=== PATIENT | female | born 1955 | race Caucasian/White ===

== ENCOUNTER 2018-08-15 08:34 | Day surgery (SDC) | payer OTHER ==
[2018-08-15 09:38] VITALS: TEMP 98.1
[2018-08-15 10:30] VITALS: RESP 16
--- NOTE | 2018-08-15 11:04 | US ---
EXAMINATION TYPE: US biopsy lymph node DATE OF EXAM: 08/15/2018 HISTORY: Right axillary adenopathy, mass. FINDINGS: Maximal barrier technique was utilized. The skin overlying a suitable path to the patient' s mass in the right axilla was localized with ultrasound and the overlying skin prepped and draped. Ultrasound was utilized with sterile technique. Lidocaine was used for local anesthesia. A skin omer k was made with a scalpel. An 18-gauge needle was advanced under direct ultrasound guidance and core specimen obtained of the mass, 2 additional cores for total of 3 passes. Specimen submitted in form [place] to Pathology. Following the procedure, hemostasis achieved and the patient is discharged in sta ble condition without complication. IMPRESSION:STATUS POST ULTRASOUND GUIDED CORE BIOPSY OF right axillary adenopathy, MASS, PATHOLOGY IS PENDING. THIS PROCEDURE IS PERFORMED BY THE UNDERSIGNED.
[2018-08-15 11:05] VITALS: BP 112/62; PULSE 98
== END 2018-08-15 10:55 | disposition home or self-care (01) ==
LOC: RADPROMAIN 08:34
PROVIDERS: ATTEND Surgery Plastic and Reconstructive Surgery
DX: L92.8 Other granulomatous disorders of the skin and subcutaneous tissue (principal); R59.0 Localized enlarged lymph nodes; Z85.3 Personal history of malignant neoplasm of breast
CPT/HCPCS: 38505; 76942; 88305

== ENCOUNTER 2018-09-22 07:51 | Day surgery (SDC) | payer OTHER ==
[2018-09-21 08:44] VITALS: BMI 46.0
[~2018-09-22 07:51] MED LIST: ALPRAZolam 0.25 MG TAB PO PRN; ASPIRIN 325 MG TAB PO ONE; NITROGLYCERIN SL TABS 0.4 MG TAB SUBLINGUAL PRN; SODIUM CHLORIDE 0.9% 1,000 ML in EMPTY BAG 1 BAG IV ONE
[2018-09-22 08:11] VITALS: TEMP 97.6
[2018-09-22 08:36] LABS: Basophils # (A) 0.1 k/uL (0-0.2); Basophils % (A) 1 %; Eosinophils # (A) 0.1 k/uL (0-0.7); Eosinophils % (A) 2 %; HCT 42.3 % (34.0-46.0); HGB 13.7 gm/dL (11.4-16.0); Lymphocytes # (A) 1.7 k/uL (1.0-4.8); Lymphocytes % (A) 36 %; MCH 31.4 pg (25.0-35.0); MCHC 32.4 g/dL (31.0-37.0); MCV 96.8 fL (80.0-100.0); Mean Platelet Volume 8.6; Monocytes # (A) 0.4 k/uL (0-1.0); Monocytes % (A) 8 %; Neutrophils # (A) 2.3 k/uL (1.3-7.7); Neutrophils % (A) 50 %; Platelet Count 167 k/uL (150-450); RBC 4.37 m/uL (3.80-5.40); RDW 13.5 % (11.5-15.5); WBC 4.7 k/uL (3.8-10.6)
[2018-09-22 08:42] LABS: Calcium 9.2 mg/dL (8.4-10.2); Potassium 4.7 mmol/L (3.5-5.1)
[2018-09-22] MEDS ORDERED: MIDAZOLAM (PF) 2 MG/2 ML VIAL IVP ONE (10:51)
[2018-09-22] MEDS ORDERED: fentaNYL (PF) 50 MCG/ML 2 ML AMP IVP ONE (10:57)
[2018-09-22] MEDS ORDERED: LIDOCAINE 1% INJ 10MG/ML (20 ML MDV) SQ ONE (10:57)
[2018-09-22] MEDS ORDERED: VERAPAMIL SYRINGE (5 MG/10 ML) INTRAARTER ONE (10:59)
[2018-09-22] MEDS ORDERED: HEPARIN SODIUM 1,000 UN/ML (10ML VL) IV ONE (11:00)
[2018-09-22] MEDS ORDERED: IOPAMIDOL-370 100ML BTL INJ ONE (11:06)
[2018-09-22] MEDS ORDERED: SODIUM CHLORIDE 0.9% 1,000 ML IV SCH (11:15)
--- NOTE | 2018-09-22 11:17 | P.PCN ---
Date of Procedure: 09/22/18 Operative Findings: CARDIAC CATHETERIZATION PERFORMING PHYSICIAN: Shaheed Lopez MD, RPVI PREPROCEDURE DIAGNOSES: #1 exertional shortness of breath concerning for angina equivalent #2 multiple risk factors for CAD POSTPROCEDURE DIAGNOSES: #1 normal coronary angiogram #2 normal left ventricular end-diastolic pressure PROCEDURE PERFORMED: 1. Selective right and left coronary angiogram 2. Left heart catheterization 3. Left ventriculography APPROACH: Right radial artery PROCEDURE DESCRIPTION: After obtaining an informed consent and explaining the procedure benefits, risks, and complications, the patient was brought to cardiac laboratory animal facility supervisor. Local anesthesia was performed using lidocaine subcutaneously. The right radial artery was cannulated using Seldinger technique, the guidewire passed easily, following that we advanced a 6-Pakistani sheath dilator assembly, the wire and dilator were removed and sheath was flushed. Following that, 2 mg of verapamil along with 3000 unit heparin were given. Selective right and left coronary angiogram using a 6-Pakistani JR4 and JL 3.5 catheters. Following that we did left heart catheterization followed by left ventriculography using 6-Pakistani pigtail catheter. The procedure was completed there was no complication. SELECTIVE CORONARY ANGIOGRAM: The right coronary artery: Is a large caliber vessel and a dominant vessel and appears to be angiographically normal. Left main: Is angiographically normal but short left main. The left circumflex: Is a large caliber vessel and nondominant vessel and appears to be angiographically normal The left anterior descending artery: Is a large caliber vessel. Its angiographically normal. The proximal portion gives rises into a large diagonal branch which seems to be angiographically normal. HEMODYNAMICS: The LVEDP was 10 mmHg without significant gradient across aortic valve VENTRICULOGRAPHY: Was not performed POSTPROCEDURE MANAGEMENT: Medical treatment
[2018-09-22 11:26] VITALS: RESP 18
[2018-09-22 14:18] VITALS: BP 104/59; PULSE 75
== END 2018-09-22 15:00 | disposition home or self-care (01) ==
LOC: CATHCVL 07:51
PROVIDERS: ATTEND Internal Medicine Interventional Cardiology
DX: R07.89 Other chest pain (principal); R06.02 Shortness of breath; R42 Dizziness and giddiness; I10 Essential (primary) hypertension; E78.00 Pure hypercholesterolemia, unspecified; F17.210 Nicotine dependence, cigarettes, uncomplicated; I73.9 Peripheral vascular disease, unspecified; Z88.5 Allergy status to narcotic agent
CPT/HCPCS: 93458; 80048; 85025; C1769; C1894; J2001; J3010; J1644; Q9967; J2250

== ENCOUNTER → 2018-09-26 | Outpatient (CLI) | payer OTHER ==
--- NOTE | 2018-09-26 13:30 | CT ---
EXAMINATION TYPE: CT abdomen pelvis w con DATE OF EXAM: 09/26/2018 COMPARISON: None HISTORY: Hematuria CT DLP: 2238.2 mGycm Automated exposure control for dose reduction was used. CONTRAST: CT scan of the abdomen pelvis is performed with IV Contrast, patient injected with 100 mL of Isovue 3 00. FINDINGS- LUNG BASES-subsegmental changes at the lung bases most typical of atelectasis. 3 mm subpleural nodule right lower lobe LIVER/GB-postcholecystectomy changes.. PANCREAS- No gross abnormality is seen. SPLEEN- No gross abnormality is seen. ADRENALS- No gross abnormality is seen. KIDNEYS/BLADDER- no hydronephrosis, nephrolithiasis or renal mass. Bladder is homogeneous in attenuat ion. BOWEL-bowel gas pattern nonspecific. Changes of diverticulosis. No CT evidence of diverticulitis. Ret ained fecal debris noted. LYMPH NODES- No greater than 1cm abdominal or pelvic lymph nodes are appreciated. OSSEOUS STRUCTURES-hypertrophic and degenerative changes spine. OTHER- aorta of normal caliber with atherosclerotic changes. No free fluid. IMPRESSION- 1. No evidence of renal mass or hydronephrosis. 2. There is a 3 mm subpleural nodule right lower lobe. Follow-up CT chest in 6 months recommended to confirm stability.
== END | disposition home or self-care (01) ==
LOC: RADCTMAIN 11:32
PROVIDERS: ATTEND Urology
DX: R31.9 Hematuria, unspecified (principal); Z88.5 Allergy status to narcotic agent
CPT/HCPCS: 82565; 84520; 74177; 36415; Q9967 ×2

== ENCOUNTER → 2018-12-06 | Outpatient (CLI) | payer OTHER ==
--- NOTE | 2018-12-06 13:14 | MR ---
EXAMINATION TYPE: MR cervical spine wo con DATE OF EXAM: 12/06/2018 COMPARISON: None HISTORY: Radiculopathy, cervical region TECHNIQUE: Multiplanar, multisequence images of the cervical spine were acquired. FINDINGS: There is straightening of usual cervical lordosis and multilevel degenerative disc disease. There is grade 1 anterolisthesis of C4 on C5, likely on a degenerative basis. Vertebral body heights are maintained. There is patient motion limiting evaluation of the spinal cord although no focal les ion is seen. Numerous prominent probable arachnoid granulations are noted of the occipital bone. C2-C3: There is a small posterior disc osteophyte complex, uncovertebral hypertrophy, and facet arthr opathy creating mild bilateral neural foraminal narrowing, right greater than left. No spinal canal s tenosis. C3-C4: There is uncovertebral hypertrophy and facet arthropathy creating moderate bilateral neural fo raminal narrowing. Broad-based disc bulge is seen without spinal canal stenosis. C4-C5: There is a focal central disc herniation, uncovertebral hypertrophy, and facet arthropathy cre ating mild right and moderate left neural foraminal narrowing and minimally narrowing the ventral sub arachnoid space. C5-C6: There is a broad-based disc bulge, uncovertebral hypertrophy, and facet arthropathy creating m oderate to severe bilateral neural foraminal narrowing and minimally narrowing the ventral subarachno id space. C6-C7: There is a broad-based disc bulge, uncovertebral hypertrophy, and facet arthropathy creating m ild bilateral neural foraminal narrowing (left greater than right). This also contributes to mild letha rowing of the ventral subarachnoid space. C7-T1: Disc desiccation is seen without spinal canal stenosis or neural foraminal narrowing. IMPRESSION: 1. Central disc herniation at C4-C5 in combination with degenerative disc disease crating mild right and moderate left neural foraminal narrowing and minimally narrowing the ventral spinal canal. 2. Moderate multilevel degenerative disc disease creating variable degrees of neural foraminal narrow ing as detailed above most severe at C5-C6. No additional focal disc herniation. 3. Multilevel minimal narrowing of the ventral spinal canal at C4-C5, C5-C6, and C6-C7 with straighte sivan of usual cervical lordosis contributing to this finding in the basis of muscular sprain/chiasm o r patient positioning. 4. Partially visualized probable multiple prominent arachnoid granulations of the occipital bone alth ough these are only seen on sagittal sequence and MRI brain could further evaluate this finding.
== END | disposition home or self-care (01) ==
LOC: RADMRIMAIN 10:35
PROVIDERS: ATTEND Family Medicine
DX: M48.02 Spinal stenosis, cervical region (principal); M50.121 Cervical disc disorder at C4-C5 level with radiculopathy
CPT/HCPCS: 72141

== ENCOUNTER 2019-07-05 13:16 | Emergency (ER) | payer OTHER ==
[2019-07-05 13:28] VITALS: TEMP 97.8
[2019-07-05] MEDS ORDERED: ONDANSETRON 4 MG/2 ML VIAL IVP STA (14:41)
[2019-07-05] MEDS ORDERED: SODIUM CHLORIDE 0.9% 1,000 ML IV STA (14:41)
--- NOTE | 2019-07-05 14:47 | ED ---
General Adult HPI - General Chief complaint: Dizziness Stated complaint: Dizzy, flank pain Time Seen by Provider: 07/05/19 14:25 Source: patient Mode of arrival: wheelchair Limitations: no limitations - History of Present Illness Initial comments: Dictation was produced using [employer] dictation software. please excuse any grammatical, word or spelling errors. Chief Complaint: 63-year-old female past medical history of COPD presents with 1 day of dizziness and chest tenderness History of Present Illness: Patient is 63-year-old female she presents today from [facility] for evaluation. Patient was initially [facility] for one day of dizziness. She denies any nausea vomiting. Patient states she also has some pressure to the top of her head. She denies the sensation of room spinning. She just feels a little lightheaded. No diarrhea. No abdominal pain. Patient also has some chest tenderness to the left anterior chest. She states it hurts right under her breasts when she presses it. Denies any substernal chest pressure. Pleuritic chest symptoms. There has been viral URI that has been going around the house and affecting her family members. The ROS documented in this emergency department record has been reviewed and confirmed by me. Those systems with pertinent positive or negative responses have been documented in the HPI. All other systems are other negative and/or noncontributory. PHYSICAL EXAM: General Impression: Alert and oriented x3, not in acute distress HEENT: Normocephalic atraumatic, extra-ocular movements intact, pupils equal and reactive to light bilaterally, mucous membranes moist. Cardiovascular: Heart regular rate and rhythm, S1&S2 audible, no murmurs, rubs or gallops Chest: Lungs clear to auscultation bilaterally, no rhonchi, no wheeze, no rales Abdomen: Bowel sounds present, abdomen soft, non-tender, non-distended, no organomegaly Musculoskeletal: Pulses present and equal in all extremities, no peripheral edema Motor: no focal deficits noted Neurological: CN II-XII grossly intact, no focal motor or sensory deficits noted Skin: Intact with no visualized rashes Psych: Normal affect and mood ED course: 63-year-old female presents with dizziness. Signs upon arrival are within acceptable limits. EKGs benign. Patient is well-appearing. Chest pain is atypical and reproducible with palpation. Laboratory evaluation obtained. CBC, metabolic panel is unremarkable. Uri nalysis shows 14 white blood cells. Patient offered antibiotics for possible urinary tract infection. Patient told that this is reasonable given that she does not have any significant urinary symptoms. She is told however to follow up with her culture results in 2 days. Patient is agreeable for discharge she is feeling a lot better. Patient told to maintain good hydration. Advised follow-up with primary care physician upon discharge. At this point is unclear what is causing patient's symptoms however she is well-appearing ambulatory baseline tolerating by mouth. She states that her symptoms are improved. EKG interpretation: Ventricular rate 76, normal sinus rhythm,. 184, QRS 84, QTC 436. No UT prolongation, no QTC prolongation, no ST or T-wave changes noted. Overall, this EKG is unremarkable - Related Data Home Medications Medication Instructions Recorded Confirmed Acetaminophen Tab [Tylenol] 1,000 mg PO HS PRN 08/02/18 09/21/18 Albuterol Inhaler [Ventolin Hfa 1 - 2 puff INHALATION RT-Q6H PRN 08/02/18 09/21/18 Inhaler] Famotidine [Pepcid] 20 mg PO DAILY 08/02/18 09/22/18 Allergies Allergy/AdvReac Type Severity Reaction Status Date / Time codeine Allergy dizziness,h Verified 07/05/19 13:27 irene morphine Allergy Chest Pain Verified 07/05/19 13:27 Review of Systems ROS Statement: Those systems with pertinent positive or pertinent negative responses have been documented in the HPI. ROS Other: All systems not noted in ROS Statement are negative. Past Medical History Past Medical History: Cancer, COPD, Hypertension, Sleep Apnea/CPAP/BIPAP Additional Past Medical History / Comment(s): swelling areas under davy arms-had recent lymph node bx for, recent blood in urine-F/U w/Urology for further testing, no CPAP, breast cancer dx 1983-Stage 1-no radiation or chemo,generalized cysts,diverticulosis, SOB w/exertion recently, valve problem per pt. History of Any Multi-Drug Resistant Organisms: None Reported Past Surgical History: Appendectomy, Breast Surgery, Section, Leyda cystectomy Additional Past Surgical History / Comment(s): davy mastectomies with reconstruction-mult repairs and implant replacements-implants later removed,most ovaries gone,adhesions removed,repair of stomach tear Past Anesthesia/Blood Transfusion Reactions: No Reported Reaction Additional Past Anesthesia/Blood Transfusion Reaction / Comment(s): had a hard time waking up with one procedure Past Psychological History: No Psychological Hx Reported Smoking Status: Former smoker Past Alcohol Use History: None Reported Past Drug Use History: None Reported - Past Family History Mother Family Medical History: COPD Additional Family Medical History / Comment(s): bad heart valves Brother(s) Family Medical History: Diabetes Mellitus Sister(s) Family Medical History: Diabetes Mellitus General Exam Limitations: no limitations Course Vital Signs 07/05/19 07/05/19 07/05/19 13:25 14:27 15:32 Temperature 97.8 F Pulse Rate 83 76 88 Pulse Rate [ Standing] Pulse Rate [ Supine] Respiratory 20 16 18 Rate Blood Pressure 105/75 121/80 126/69 Blood Pressure [Right Arm Standing] Blood Pressure [Right Arm Supine] O2 Sat by Pulse 98 98 93 L Oximetry 07/05/19 07/05/19 15:34 15:35 Temperature Pulse Rate Pulse Rate [ 87 Standing] Pulse Rate [ 88 Supine] Respiratory Rate Blood Pressure Blood Pressure 126/69 [Right Arm Standing] Blood Pressure 121/80 [Right Arm Supine] O2 Sat by Pulse Oximetry Medical Decision Making - Lab Data Result diagrams: 07/05/19 14:55 07/05/19 14:55 Lab Results 07/05/19 07/05/19 07/05/19 Range/Units 14:45 14:55 14:55 WBC 7.9 (3.8-10.6) k/uL RBC 4.10 (3.80-5.40) m/uL Hgb 13.3 (11.4-16.0) gm/dL Hct 40.2 (34.0-46.0) % MCV 98.2 (80.0-100.0) fL MCH 32.4 (25.0-35.0) pg MCHC 33.0 (31.0-37.0) g/dL RDW 12.8 (11.5-15.5) % Plt Count 169 (150-450) k/uL Neutrophils % 67 % Lymphocytes % 23 % Monocytes % 7 % Eosinophils % 1 % Basophils % 1 % Neutrophils # 5.3 (1.3-7.7) k/uL Lymphocytes # 1.8 (1.0-4.8) k/uL Monocytes # 0.5 (0-1.0) k/uL Eosinophils # 0.1 (0-0.7) k/uL Basophils # 0.1 (0-0.2) k/uL Sodium 137 (137-145) mmol/L Potassium 5.1 (3.5-5.1) mmol/L Chloride 104 (98-107) mmol/L Carbon Dioxide 28 (22-30) mmol/L Anion Gap 5 mmol/L BUN 18 H (7-17) mg/dL Creatinine 0.73 (0.52-1.04) mg/dL Est GFR (CKD-EPI)AfAm >90 (>60 ml/min/1.73 sqM) Est GFR (CKD-EPI)NonAf 88 (>60 ml/min/1.73 sqM) Glucose 102 H (74-99) mg/dL Calcium 9.3 (8.4-10.2) mg/dL Magnesium 2.0 (1.6-2.3) mg/dL Total Bilirubin 0.7 (0.2-1.3) mg/dL AST 36 (14-36) U/L ALT 20 (4-34) U/L Alkaline Phosphatase 98 (38-126) U/L Total Protein 7.9 (6.3-8.2) g/dL Albumin 4.5 (3.5-5.0) g/dL Urine Color Light Yellow Urine Appearance Clear (Clear) Urine pH 6.0 (5.0-8.0) Ur Specific [place] 1.007 (1.001-1.035) Urine Protein Negative (Negative) Urine Glucose (UA) Negative (Negative) Urine Ketones Negative (Negative) Urine Blood Small H (Negative) Urine Nitrite Negative (Negative) Urine Bilirubin Negative (Negative) Urine Urobilinogen <2.0 (<2.0) mg/dL Ur Leukocyte Esterase Moderate H (Negative) Urine RBC <1 (0-5) /hpf Urine WBC 14 H (0-5) /hpf Ur Squamous Epith Cells 2 (0-4) /hpf Urine Bacteria Occasional H (None) /hpf Urine Mucus Rare H (None) /hpf Disposition Clinical Impression: Dizziness Disposition: HOME SELF-CARE Condition: Good Instructions (If sedation given, give patient instructions): Dizziness (ED) Additional Instructions: Follow-up with urine cultures in 48 hours. Is patient prescribed a controlled substance at d/c from ED?: No Referrals: Ramirez Chavez MD [Primary Care Provider] - 1-2 days Time of Disposition: 15:41
[2019-07-05 15:04] LABS: Basophils # (A) 0.1 k/uL (0-0.2); Basophils % (A) 1 %; Eosinophils # (A) 0.1 k/uL (0-0.7); Eosinophils % (A) 1 %; HCT 40.2 % (34.0-46.0); HGB 13.3 gm/dL (11.4-16.0); Lymphocytes # (A) 1.8 k/uL (1.0-4.8); Lymphocytes % (A) 23 %; MCH 32.4 pg (25.0-35.0); MCV 98.2 fL (80.0-100.0); Mean Platelet Volume 8.4; Monocytes # (A) 0.5 k/uL (0-1.0); Monocytes % (A) 7 %; Neutrophils # (A) 5.3 k/uL (1.3-7.7); Neutrophils % (A) 67 %; Platelet Count 169 k/uL (150-450); RDW 12.8 % (11.5-15.5); WBC 7.9 k/uL (3.8-10.6)
[2019-07-05 15:13] LABS: Appearance,Urine Clear (Clear); Bacteria,Urine Occasional /hpf; Bilirubin,Urine Negative (Negative); Blood,Urine Small (Negative); Color,Urine Light Yellow; Glucose,Urine (UA) Negative (Negative); Ketones,Urine Negative (Negative); Leukocyte Esterase,Urine Moderate (Negative); Mucus,Urine Rare /hpf; Nitrite,Urine Negative (Negative); Protein,Urine Negative (Negative); RBC,Urine <1 /hpf (0-5); Specific Gravity,Urine 1.007 (1.001-1.035); Squamous Epithelial Cell,Urine 2 /hpf (0-4); Urobilinogen,Urine <2.0 mg/dL (<2.0); WBC,Urine 14 /hpf (0-5)
[2019-07-05 15:13] LABS: ALT 20 U/L (4-34); AST 36 U/L (14-36); African American GFR (CKD) >90 (>60 ml/min/1.73 sqM); Albumin 4.5 g/dL (3.5-5.0); Alkaline Phosphatase 98 U/L (38-126); Anion Gap 5 mmol/L; Blood Urea Nitrogen 18 mg/dL (7-17); Calcium 9.3 mg/dL (8.4-10.2); Carbon Dioxide 28 mmol/L (22-30); Chloride 104 mmol/L (98-107); Glucose 102 mg/dL (74-99); Non-African American GFR(CKD) 88 (>60 ml/min/1.73 sqM); Sodium 137 mmol/L (137-145); Total Bilirubin 0.7 mg/dL (0.2-1.3); Total Protein 7.9 g/dL (6.3-8.2)
[2019-07-05 15:23] LABS: Potassium 5.1 mmol/L (3.5-5.1)
[2019-07-05] MEDS ORDERED: cefTRIAXone IN SWFI 1,000 MG/10 ML SYRINGE IVP STA (15:31)
[2019-07-05 15:33] VITALS: RESP 18
[2019-07-05 16:08] VITALS: BP 117/75; PULSE 79
== END 2019-07-05 16:15 | disposition home or self-care (01) ==
LOC: EC 13:16
DX: R42 Dizziness and giddiness (principal); R07.9 Chest pain, unspecified; J44.9 Chronic obstructive pulmonary disease, unspecified; I10 Essential (primary) hypertension; G47.30 Sleep apnea, unspecified; Z79.899 Other long term (current) drug therapy; Z88.5 Allergy status to narcotic agent; Z87.891 Personal history of nicotine dependence; Z99.89 Dependence on other enabling machines and devices; Z90.13 Acquired absence of bilateral breasts and nipples; Z85.3 Personal history of malignant neoplasm of breast
CPT/HCPCS: 36415; 93005; 80053; 83735; 85025; 81001; 87086; 99284; 96374; 96361; J2405

== ENCOUNTER → 2019-12-28 | Outpatient (CLI) | payer MEDICARE, OTHER ==
--- NOTE | 2019-12-28 07:53 | CTL ---
EXAMINATION TYPE: CT Low Dose Lung DATE OF EXAM ORDERED: 12/28/2019 COMPARISON: None HISTORY: . Low Dose CT Lung Screening CT DLP: 141.[address] CTDI: 4.3 mGy IV CONTRAST USED: None. SCREENING VISIT: First visit COMPARISON: None. TECHNIQUE: Low dose computed tomography scan was performed through the chest at 1 millimeter thick se ctions and reconstructed images in the coronal plane at [address] DIAGNOSTIC QUALITY: Satisfactory FINDINGS: LUNG NODULES: Left lower lobe pulmonary nodule solid measuring 5.4 mm image 1:30 of 275. Solid pleura l-based nodule right lower lobe medially measuring 4.4 mm image 157. Pleural-based nodule right lower lobe laterally measuring 5.4 mm image 191. LUNGS: COPD: Severity: Mild Fibrosis: Severity:None Lymph nodes: None Other findings: None RIGHT PLEURAL SPACE: Effusion: None Calcification: None Thickening: None Pneumothorax: None LEFT PLEURAL SPACE: Effusion: None Calcification: None Thickening: None Pneumothorax: None HEART: Heart Size: Mildly enlarged Coronary calcification: Mild Pericardial effusion: None OTHER FINDINGS: Upper abdomen: No significant abnormality Bony thorax: Degenerative changes Supraclavicular region: No significant abnormalityOther: No significant abnormalityI IMPRESSION: Benign FOLLOW UP CT CHEST RECOMMENDATION: Follow-up screening in one year. Smoking cessation advised. CT LUNG RAD: LUNG RAD CATEGORY 2 benign appearance or behavior
== END | disposition home or self-care (01) ==
LOC: RADCTMAIN 06:46
PROVIDERS: ATTEND Internal Medicine
DX: Z12.2 Encounter for screening for malignant neoplasm of respiratory organs (principal); Z87.891 Personal history of nicotine dependence

== ENCOUNTER → 2019-12-28 | Outpatient (CLI) | payer MEDICARE, OTHER ==
--- NOTE | 2019-12-28 09:31 | USB ---
Reason for exam: clinical finding. History: Patient is postmenopausal and has history of breast cancer at age 27. Saline implants in both breasts, 2007. Lumpectomy of both breasts. Took hormonal contraceptives for 1 year. Indicated problem(s): pain in both breasts. Physical Findings: Nurse Summary: bilateral breast pain x 1 year, pain over scarring and entire breast with exam (nurse sissy). US Breast BILAT Right complete breast ultrasound includes all four quadrants, the retroareolar region and axilla. Finding demonstrates a 1.2 x 1.1cm hyperechoic, silicone lesion at 4 o'clock, a 4.2 x 4.0 x 1.4cm cystic lesion at 7 o'clock, collapsed retropectoral implant and a 2.1 x 1.3cm hyperechoic, silicone lesion at 9 o'clock. Left complete breast ultrasound includes all four quadrants, the retroareolar region and axilla. Finding demonstrates a 2.0 x 2.0cm hyperechoic, silicone implant at 1 o'clock, possibly within an axillary node and a 2.2 x 6.8 x 1.1cm cystic lesion at 6 o'clock, collapsed retropectoral implant. Very deformed tissue bilaterally. These results were verbally communicated with the patient and result sheet given to the patient on 12/28/19. ASSESSMENT: Incomplete: need additional imaging evaluation, BI-RAD 0 RECOMMENDATION: Special view mammogram of both breasts.
--- NOTE | 2019-12-28 09:35 | MM ---
Reason for exam: clinical finding. History: Patient is postmenopausal and has history of breast cancer at age 27. Saline implants in both breasts, 2007. Lumpectomy of both breasts. Took hormonal contraceptives for 1 year. MG 3D Diag Mammo W/Cad VIOLET Bilateral CC, MLO, and XCCL view(s) were taken. There are scattered fibroglandular densities. Bilateral breast deformities. 1.9cm high density node left axilla corresponds to the silicone nodule on ultrasound. These results were verbally communicated with the patient and result sheet given to the patient on 12/28/19. ASSESSMENT: Probably benign, BI-RAD 3 RECOMMENDATION: Further imaging of both breasts in [address] 6 months for right nodule adjacent to the implant, likely a silicone granuloma.
== END | disposition home or self-care (01) ==
LOC: RADUSWWP 07:07
PROVIDERS: ATTEND Family Medicine
DX: N64.4 Mastodynia (principal); R92.8 Other abnormal and inconclusive findings on diagnostic imaging of breast
CPT/HCPCS: 77066; 76641; G0279; 77062

== ENCOUNTER → 2020-07-11 | Outpatient (CLI) | payer MEDICARE, OTHER ==
--- NOTE | 2020-07-11 15:11 | CT ---
EXAMINATION TYPE: CT chest w con DATE OF EXAM: 07/11/2020 COMPARISON: 12/28/2019 HISTORY: 64-year-old female R91.8, lung nodule, six-month follow-up TECHNIQUE: Contiguous axial scanning of the chest after the administration of 100 mL of Isovue 300. Coronal/sagittal reconstructions performed. CT DLP: 589.4mGycm. Automatic exposure control utilized for a dose reduction. FINDINGS: Bilateral breast deformity. Suggestion of underlying collapsed retropectoral bilateral breast implant s. Nodularity along the anterior margin of the collapsed right breast implant measures 1.2 cm versus 9 m m on 12/28/2019. Left axillary nodule/lymph node measures 2.3 x 1.3 cm, not clearly seen previously. However, the arnoldo ent has changed positions now with the left arm down. Heart normal size without pericardial effusion. Aorta normal caliber with conventional arch vessel branching anatomy. Prevascular space lymph node measures 9 mm, unchanged. No mediastinal or hilar lymphadenopathy by CT size criteria. Mild centrilobular emphysema. Trace biapical pleural-parenchymal scarring. Stable 4 mm right upper lobe pulmonary nodule, axial image 22. Stable 4 mm subpleural pulmonary nodule medial right lower lobe, axial image 30. Stable 5 mm subpleural pulmonary nodule peripheral right base, axial image 37. Strandy scarring or atelectasis in the lower lungs. No consolidation or pleural effusion. Visualized upper abdomen shows cholecystectomy clips. Bones: Mild to moderate degenerative disc disease mid to lower thoracic spine. IMPRESSION: 1. COPD with mild emphysema. Stable 5 mm and smaller right-sided pulmonary nodules. 2. The patient's arm position has changed compared to 12/28/2019. This may account for the new finding in the left axilla, a borderline to mildly enlarged lymph node measuring 2.3 x 1.3 cm, not clearly se en previously. Recommend targeted left breast ultrasound evaluation. 3. A 1.2 cm nodule anterior to the patient's collapsed right breast implant appears to have increased in size from 9 mm on 12/28/2019. Recommended targeted right breast ultrasound evaluation.
== END ==
LOC: RADCTMAIN 14:03
PROVIDERS: ATTEND Internal Medicine
DX: R91.8 Other nonspecific abnormal finding of lung field (principal); J43.9 Emphysema, unspecified
CPT/HCPCS: 71260; Q9967

== ENCOUNTER → 2020-07-23 | Outpatient (CLI) | payer MEDICARE, OTHER ==
--- NOTE | 2020-07-24 11:20 | USB ---
Reason for exam: clinical finding. History: Patient is postmenopausal and has history of breast cancer at age 27. Saline implants in both breasts, 2007. Lumpectomy of both breasts. Took hormonal contraceptives for 1 year. Indicated problem(s): pain in the right breast. Physical Findings: Nurse did not find any significant physical abnormalities on exam. US Breast Limited BILAT Right limited breast ultrasound including focal area of concern, retroareolar and axilla demonstrates a 1.2 x 1.7 x 1.2cm hyperechoic lesion at 3-4 o'clock silicone overlying the implant, versus 1.2 x 1.1cm previously, possible CT correlate, 6 month follow up, a 0.8 x 0.5 x 0.5cm hyperechoic lesion at 9 o'clock, subtle area could be additional silicone, 6 month follow up recommended and a 1.1 x 1.2 x 0.9cm hyperechoic lesion at 10 o'clock BB, silicone. Left limited breast ultrasound including focal area of concern, retroareolar and axilla demonstrates a 2.2 x 2.2 x 1.7cm hyperechoic lesion at the axilla, silicone in node, versus 2.0 x 2.0cm previously, probable CT correlate. These results were verbally communicated with the patient and result sheet given to the patient on 07/23/20. ASSESSMENT: Probably benign, BI-RAD 3 RECOMMENDATION: Follow-up diagnostic mammogram of both breasts in 6 months. Ultrasound of the right breast in 6 months. (3-4 o'clock and 9 o'clock) Also, continue annual low dose lung cancer screening CT to reassess the right sided nodule.
== END | disposition home or self-care (01) ==
LOC: RADUSWWP 09:36
PROVIDERS: ATTEND Internal Medicine
DX: N63.10 Unspecified lump in the right breast, unspecified quadrant (principal); Z78.0 Asymptomatic menopausal state; Z85.3 Personal history of malignant neoplasm of breast

== ENCOUNTER → 2021-02-17 | Outpatient (CLI) | payer MEDICARE, OTHER ==
--- NOTE | 2021-02-17 11:31 | MM ---
Reason for exam: additional evaluation requested from prior study. Last mammogram was performed 1 year and 2 months ago. History: Patient is postmenopausal and has history of breast cancer at age 27. Implant Removal of both breasts, 2017. Saline implants in both breasts, 2006. Lumpectomy of both breasts. Took hormonal contraceptives for 1 year. Physical Findings: Nurse did not find any significant physical abnormalities on exam. MG 3D Diag Mammo W/Cad VIOLET Bilateral CC and MLO view(s) were taken. Prior study comparison: December 28, 2019, bilateral MG 3d diag mammo w/cad VIOLET. There are scattered fibroglandular densities. Bilateral breast distortion secondary to multiple operations. No suspicious masses. These results were verbally communicated with the patient and result sheet given to the patient on 02/17/21. ASSESSMENT: Incomplete: need additional imaging evaluation, BI-RAD 0 RECOMMENDATION: Ultrasound of the right breast.
--- NOTE | 2021-02-17 11:33 | USB ---
Reason for exam: additional evaluation requested from abnormal screening. History: Patient is postmenopausal and has history of breast cancer at age 27. Implant Removal of both breasts, 2017. Saline implants in both breasts, 2006. Lumpectomy of both breasts. Took hormonal contraceptives for 1 year. US Breast Limited RT Right limited breast ultrasound including focal area of concern, retroareolar and axilla demonstrates a 1.3 x 1.4 x 1.1cm hyperechoic lesion at 3-4 o'clock, questionable silicone and a 0.5 x 0.6 x 0.5cm hyperechoic lesion at 9 o'clock, questionable silicone. These results were verbally communicated with the patient and result sheet given to the patient on 02/17/21. ASSESSMENT: Benign, BI-RAD 2 RECOMMENDATION: Follow-up diagnostic mammogram of both breasts in 1 year.
== END | disposition home or self-care (01) ==
LOC: RADMAMWWP 08:42
PROVIDERS: ATTEND Family Medicine
DX: Z12.31 Encounter for screening mammogram for malignant neoplasm of breast (principal); C50.919 Malignant neoplasm of unspecified site of unspecified female breast; R92.8 Other abnormal and inconclusive findings on diagnostic imaging of breast; N63.10 Unspecified lump in the right breast, unspecified quadrant
CPT/HCPCS: 77066; 76642; G0279; 77062

== ENCOUNTER → 2021-03-14 | Outpatient (CLI) | payer MEDICARE, OTHER ==
--- NOTE | 2021-03-14 13:24 | CT ---
EXAMINATION TYPE: CT chest w con DATE OF EXAM: 03/14/2021 COMPARISON: Chest CT July 11, 2020 HISTORY: Abnormal lung rojo CT DLP: 998 mGycm. Automated Exposure Control for Dose Reduction was Utilized. TECHNIQUE: CT scan of the thorax is performed following with IV Contrast, patient injected with 100 mL of Isovue 300. FINDINGS: LUNGS: Stable 3 mm right upper lobe nodule axial image 20. Stable 3 to 4 mm subpleural right lower l obe nodule medially on axial image 30. Stable 5 mm subpleural right lower lobe nodule axial image 34. Stable 4 mm superior left lower lobe nodule axial image 25. Mild scattered linear scarring bilateral ly redemonstrated. There is no pleural effusion or pneumothorax seen bilaterally. The tracheobronchi al tree is patent. MEDIASTINUM: There are no new greater than 1 cm hilar or mediastinal lymph nodes. Stable prominent pr evascular lymph node axial image 13. No cardiomegaly or pericardial effusion is seen. OTHER: Persistent collapsed bilateral subpectoral breast implants axial image 23 for reference. Stabl e 1.2 cm nodularity anterior to right breast implant axial image 23, nonspecific. Prominent left axil tamera lymph nodes redemonstrated without interval enlargement. Prominent right axillary lymph nodes re demonstrated, a few slightly enlarged may be outside of field of view on prior study. Cholecystectomy clips are redemonstrated. Slightly exaggerated thoracic kyphosis with mild multilevel spurring. IMPRESSION: Mild scattered linear scarring with stable scattered tiny bilateral pulmonary nodules. No new or enlarging greater than 5 mm nodules
== END | disposition home or self-care (01) ==
LOC: RADCTMAIN 10:52
PROVIDERS: ATTEND Internal Medicine
DX: R91.1 Solitary pulmonary nodule (principal)
CPT/HCPCS: 82565; 84520; 71260; 36415; Q9967

== ENCOUNTER 2021-11-04 18:18 | Observation (INO) | payer MEDICARE, OTHER ==
[2021-11-04 19:10] LABS: Basophils # (A) 0.1 k/uL (0-0.2); Basophils % (A) 1 %; Eosinophils # (A) 0.1 k/uL (0-0.7); Eosinophils % (A) 2 %; HCT 41.3 % (34.0-46.0); HGB 13.7 gm/dL (11.4-16.0); Lymphocytes # (A) 2.6 k/uL (1.0-4.8); Lymphocytes % (A) 40 %; MCHC 33.1 g/dL (31.0-37.0); MCV 102.7 fL (80.0-100.0); Macrocytosis Slight; Mean Platelet Volume 9.5; Monocytes # (A) 0.6 k/uL (0-1.0); Monocytes % (A) 10 %; Neutrophils # (A) 2.8 k/uL (1.3-7.7); Neutrophils % (A) 43 %; Platelet Count 176 k/uL (150-450); RBC 4.02 m/uL (3.80-5.40); RDW 12.8 % (11.5-15.5); WBC 6.5 k/uL (3.8-10.6)
--- NOTE | 2021-11-04 19:15 | XR ---
EXAMINATION TYPE: XR chest 2V DATE OF EXAM: 11/04/2021 7:03 PM COMPARISON: Chest radiographs from 08/13/2021. TECHNIQUE: XR chest 2V Frontal and lateral views of the chest. CLINICAL INDICATION:Female, 66 years old with history of Chest Pain; FINDINGS: Lungs/Pleura: There is no evidence of pleural effusion, focal consolidation, or pneumothorax. Streak y atelectasis seen within the lung bases. Pulmonary vascularity: Unremarkable. Heart/mediastinum: Cardiomediastinal silhouette is unremarkable. Musculoskeletal: No acute osseous pathology. IMPRESSION: No acute cardiopulmonary disease/process.
[2021-11-04 19:17] LABS: INR 0.9 (<1.2); Partial Thromboplastin Time 23.8 sec (22.0-30.0); Prothrombin Time 10.2 sec (9.0-12.0)
[2021-11-04 19:21] LABS: Albumin 4.4 g/dL (3.5-5.0); Calcium 9.3 mg/dL (8.4-10.2); Magnesium 2.1 mg/dL (1.6-2.3); Potassium 4.5 mmol/L (3.5-5.1); Total Bilirubin 0.4 mg/dL (0.2-1.3); Total Protein 7.6 g/dL (6.3-8.2)
[2021-11-04] MEDS ORDERED: methylPREDNISolone SOD SUCCI 125 MG/2 ML VIAL IV STA (20:37)
[2021-11-04] MEDS ORDERED: IPRATROPIUM-ALBUTEROL 3 ML NEB INHALATION STA (20:37)
--- NOTE | 2021-11-04 20:38 | ED ---
General Adult HPI - General Chief complaint: Chest Pain Stated complaint: Chest Pain Time Seen by Provider: 11/04/21 19:10 Source: patient, RN notes reviewed, old records reviewed Mode of arrival: wheelchair Limitations: no limitations - History of Present Illness Initial comments: This a 66-year-old female presents emergency Department with a past medical history significant for a [id number] of smoking and COPD. Patient also is morbidly obese and has a strong family history of heart disease. Patient states she has had chest pain all day with associated shortness of breath and pain down the left arm. Patient states it's come and gone but mostly constant all day until a couple of hours ago when it has subsided. Patient states she still feel s short of breath however. Patient denies any nausea. Patient denies abdominal pain patient denies vomiting or diarrhea. Patient denies any recent fever chills or cough per patient denies any headache patient denies numbness weakness. Patient denies any leg swelling or calf tenderness. - Related Data Home Medications Medication Instructions Recorded Confirmed Acetaminophen Tab [Tylenol] 1,000 mg PO HS PRN 08/02/18 05/09/21 Albuterol Nebulized (Conc) 1 applic INHALATION QID PRN 05/09/21 05/09/21 [Ventolin Nebulized (Conc)] Albuterol Sulfate [Proair Hfa] 1 puff IN DAILY PRN 05/09/21 05/09/21 Fluticasone/Umeclidin/Vilanter 1 puff INHALATION DAILY 05/09/21 05/09/21 [Trelegy Ellipta 100-62.5-25] Omeprazole 20 mg PO BID 05/09/21 05/09/21 Sertraline [Zoloft] 25 mg PO HS 05/09/21 05/09/21 Allergies Allergy/AdvReac Type Severity Reaction Status Date / Time codeine Allergy dizziness,h Verified 11/04/21 18:28 irene morphine Allergy Chest Pain Verified 11/04/21 18:28 Review of Systems ROS Statement: Those systems with pertinent positive or pertinent negative responses have been documented in the HPI. ROS Other: All systems not noted in ROS Statement are negative. Past Medical History Past Medical History: Cancer, COPD, Hypertension, Sleep Apnea/CPAP/BIPAP Additional Past Medical History / Comment(s): O2 3L , 24/HR PER DAY. Swelling areas under davy arms-had recent lymph node bx for, no CPAP, breast cancer dx 1983-Stage 1-no radiation or chemo,generalized cysts,diverticulosis, SOB w/exertion recently, valve problem per pt. History of Any Multi-Drug Resistant Organisms: None Reported Past Surgical History: Appendectomy, Breast Surgery, Section, Cholecystectomy Additional Past Surgical History / Comment(s): davy mastectomies with reconstruction-mult repairs and implant replacements-implants later removed,most ovaries gone, Repair of stomach TEAR. BILATERAL CATARACTS/LENS IMPLANTS Past Anesthesia/Blood Transfusion Reactions: No Reported Reaction Additional Past Anesthesia/Blood Transfusion Reaction / Comment(s): had a hard time waking up with one procedure Past Psychological History: Anxiety Smoking Status: Former smoker Past Alcohol Use History: None Reported Past Drug Use History: None Reported - Past Family History Mother Family Medical History: COPD Additional Family Medical History / Comment(s): bad heart valves Brother(s) Family Medical History: Diabetes Mellitus Sister(s) Family Medical History: Diabetes Mellitus General Exam - General Exam Comments Initial Comments: GENERAL: Patient is well-developed and well-nourished. Patient is nontoxic and well- hydrated and is in mild distress. ENT: Neck is soft and supple. No significant lymphadenopathy is noted. Oropharynx is clear. Moist mucous membranes. Neck has full range of motion without eliciting any pain. EYES: The sclera were anicteric and conjunctiva were pink and moist. Extraocular movements were intact and pupils were equal round and reactive to light. Eyelids were unremarkable. PULMONARY: Patient has a very wheezing bilaterally CARDIOVASCULAR: There is a regular rate and rhythm without any murmurs gallops or rubs. ABDOMEN: Soft and nontender with normal bowel sounds. SKIN: Skin is clear with no lesions or rashes and otherwise unremarkable. NEUROLOGIC: Patient is alert and oriented x3. Cranial nerves II through XII are grossly intact. Motor and sensory are also intact. Normal speech, volume and content. Symmetrical smile. MUSCULOSKELETAL: Normal extremities with adequate strength and full range of motion. No lower extremity swelling or edema. No calf tenderness. LYMPHATICS: No significant lymphadenopathy is noted PSYCHIATRIC: Normal psychiatric evaluation. Limitations: no limitations Course Vital Signs 11/04/21 11/04/21 18:21 20:23 Temperature 97.9 F 97.7 F Pulse Rate 91 82 Respiratory 18 22 Rate Blood Pressure 135/75 131/79 O2 Sat by Pulse 95 95 Oximetry Medical Decision Making - Medical Decision Making Patient's EKG shows sinus rhythm at 83 bpm KS interval is 182 QRS is 75 Q-T intervals 3-90 QTC is 399. Patient's EKG shows no ST segment elevation or depression. Chest x-ray showed no acute abnormality. The patient received albuterol steroids in the emergency department as well as aspirin Nitropaste. Patient will be admitted for the chest pain as well as a COPD exacerbation. I spoke with Dr. Tidwell he agreed to admit the patient admitted the patient wrote admitting orders. - Lab Data Result diagrams: 11/04/21 18:51 11/04/21 18:51 Lab Results 11/04/21 11/04/21 11/04/21 Range/Units 18:51 18:51 18:51 WBC 6.5 (3.8-10.6) k/uL RBC 4.02 (3.80-5.40) m/uL Hgb 13.7 (11.4-16.0) gm/dL Hct 41.3 (34.0-46.0) % MCV 102.7 H (80.0-100.0) fL MCH 34.0 (25.0-35.0) pg MCHC 33.1 (31.0-37.0) g/dL RDW 12.8 (11.5-15.5) % Plt Count 176 (150-450) k/uL MPV 9.5 Neutrophils % 43 % Lymphocytes % 40 % Monocytes % 10 % Eosinophils % 2 % Basophils % 1 % Neutrophils # 2.8 (1.3-7.7) k/uL Lymphocytes # 2.6 (1.0-4.8) k/uL Monocytes # 0.6 (0-1.0) k/uL Eosinophils # 0.1 (0-0.7) k/uL Basophils # 0.1 (0-0.2) k/uL Macrocytosis Slight PT 10.2 (9.0-12.0) sec INR 0.9 (<1.2) APTT 23.8 (22.0-30.0) sec Sodium 139 (137-145) mmol/L Potassium 4.5 (3.5-5.1) mmol/L Chloride 104 (98-107) mmol/L Carbon Dioxide 28 (22-30) mmol/L Anion Gap 7 mmol/L BUN 20 H (7-17) mg/dL Creatinine 0.92 (0.52-1.04) mg/dL Est GFR (CKD-EPI)AfAm 75 (>60 ml/min/1.73 sqM) Est GFR (CKD-EPI)NonAf 65 (>60 ml/min/1.73 sqM) Glucose 105 H (74-99) mg/dL Calcium 9.3 (8.4-10.2) mg/dL Magnesium 2.1 (1.6-2.3) mg/dL Total Bilirubin 0.4 (0.2-1.3) mg/dL AST 29 (14-36) U/L ALT 23 (4-34) U/L Alkaline Phosphatase 97 (38-126) U/L Troponin I (0.000-0.034) ng/mL Total Protein 7.6 (6.3-8.2) g/dL Albumin 4.4 (3.5-5.0) g/dL 11/04/21 Range/Units 18:51 WBC (3.8-10.6) k/uL RBC (3.80-5.40) m/uL Hgb (11.4-16.0) gm/dL Hct (34.0-46.0) % MCV (80.0-100.0) fL MCH (25.0-35.0) pg MCHC (31.0-37.0) g/dL RDW (11.5-15.5) % Plt Count (150-450) k/uL MPV Neutrophils % % Lymphocytes % % Monocytes % % Eosinophils % % Basophils % % Neutrophils # (1.3-7.7) k/uL Lymphocytes # (1.0-4.8) k/uL Monocytes # (0-1.0) k/uL Eosinophils # (0-0.7) k/uL Basophils # (0-0.2) k/uL Macrocytosis PT (9.0-12.0) sec INR (<1.2) APTT (22.0-30.0) sec Sodium (137-145) mmol/L Potassium (3.5-5.1) mmol/L Chloride (98-107) mmol/L Carbon Dioxide (22-30) mmol/L Anion Gap mmol/L BUN (7-17) mg/dL Creatinine (0.52-1.04) mg/dL Est GFR (CKD-EPI)AfAm (>60 ml/min/1.73 sqM) Est GFR (CKD-EPI)NonAf (>60 ml/min/1.73 sqM) Glucose (74-99) mg/dL Calcium (8.4-10.2) mg/dL Magnesium (1.6-2.3) mg/dL Total Bilirubin (0.2-1.3) mg/dL AST (14-36) U/L ALT (4-34) U/L Alkaline Phosphatase (38-126) U/L Troponin I <0.012 (0.000-0.034) ng/mL Total Protein (6.3-8.2) g/dL Albumin (3.5-5.0) g/dL Disposition Clinical Impression: Chest pain, COPD exacerbation Disposition: ADMITTED IP TO THIS [facility] Referrals: Skylar Can MD [Primary Care Provider] - 1-2 days Time of Disposition: 20:38
[2021-11-04] MEDS ORDERED: NITROGLYCERIN SL TABS 0.4 MG TAB SUBLINGUAL PRN (20:39)
[2021-11-05] MEDS: methylPREDNISolone SOD SUCCI 125 MG/2 ML VIAL IV SCH ×2 (01:09→05:33)
[2021-11-05] MEDS: NITROGLYCERIN OINT 1 INCH/GM PACKET TOPICAL SCH ×2 (01:15→05:14)
[2021-11-05 02:54] VITALS: RESP 18
[2021-11-05] MEDS: ACETAMINOPHEN TAB 325 MG TAB PO PRN ×2 (02:58→14:48)
[2021-11-05] MEDS: IPRATROPIUM-ALBUTEROL 3 ML NEB INHALATION SCH ×3 (07:26→15:24)
[2021-11-05] MEDS ORDERED: DOBUTamine DRIP for NUC MED 500 MG in DEXTROSE/WATER 1 250ML.BAG IV PRN (08:22)
[2021-11-05] MEDS ORDERED: ASPIRIN 81 MG PO SCH (09:00)
[2021-11-05] MEDS ORDERED: ASPIRIN 325 MG TAB PO SCH (09:00)
[2021-11-05 09:16] LABS: Chol/HDL Ratio 2.67 Ratio; VLDL Calculation 11.54 mg/dL (5.00-40.00)
[2021-11-05] MEDS ORDERED: FAMOTIDINE 20 MG TAB PO SCH (09:45)
--- NOTE | 2021-11-05 10:08 | P.CRDCN ---
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 Lopez lastly in 2019. We have been asked to see in consultation for chest pain. Patient presents emergency department with complaints of chest tightness. Yesterday morning, patient woke up in the morning and exhibited left-sided chest tightness and some discomfort underneath her left breast. She states the tightness was intermittent all day and continued for over 6 hours. It was non- radiating. Non exertional. She denies any specific aggravating factors. In the ER she received DuoNeb, IV Solu-Medrol with improvement in her chest tightness. She did feel some discomfort in her left arm. She denies any shortness of breath, nausea, diaphoresis, lightheadedness, dizziness, syncope or near syncope. She denies any history of CAD, [place], stroke, diabetes. She does endorse that she recently had an abnormal CT chest which she was told that she has pulmonary nodules. She denies any current tobacco use. She recently underwent an echocardiogram in the office Dr. Can on 10/07/2021, report obtained which revealed EF 5560 %, mild to moderate concentric LVH, mild enlargement of the right ventricle, no pericardial effusion. DIAGNOSTICS EKG reveals sinus rhythm, heart rate 83, low QRS voltage in precordial leads n oted, nonspecific T-wave abnormalities, no significant ST S2 abnormality/chest ischemia Last Cardiac Catheterization [address] Lopez revealed normal coronary arteries Telemetry tracings indicate sinus mechanism. Chest xray no acute cardiopulmonary process Laboratory reviewed, troponin negative 3, triglycerides 57, cholesterol 148, LDL 81, HDL 55, sodium 139, potassium 4.5, BUN 20, serum current 0.9, magnesium 2.1, CBC unremarkable. Current home medications include albuterol, Tylenol, Pepcid, f luticasone/salmeterol, vitamin C, vitamin D, multivitamin, omega 3, co Q10 REVIEW OF SYSTEMS At the time of my exam: CONSTITUTIONAL: Denies fever or chills. CARDIOVASCULAR: Denies chest pain, shortness of breath, orthopnea, PND or palpitations. RESPIRATORY: Denies cough. GASTROINTESTINAL: Denies abdominal pain, diarrhea, constipation, nausea or vomiting. MUSCULOSKELETAL: Denies myalgias. NEUROLOGIC: Denies numbness, tingling, headache or weakness. ENDOCRINE: Denies fatigue, weight change, polydipsia or polyurina. GENITOURINARY: Denies burning, hematuria or urgency with micturation. HEMATOLOGIC: Denies history of anemia or bleeding. PHYSICAL EXAMINATION Blood pressure 147/84, heart rate 84, afebrile, saturations 92% on room air CONSTITUTIONAL: No apparent distress. HEENT: Head is normocephalic. Pupils are equal, round. Sclerae anicteric. Mucous membranes of the mouth are moist. No JVD. No carotid bruit. CHEST EXAMINATION: Lungs decreased air exchange bilaterally, left lower lobe and left upper lobe expiratory wheezing noted to auscultation. She has tenderness to the left rib underneath her left breast HEART EXAMINATION: Regular rate and rhythm. S1, S2 heard. No murmurs, gallops or rub. ABDOMEN: Soft, nontender. Positive bowel sounds. EXTREMITIES: 2+ peripheral pulses, no lower extremity edema and no calf tenderness. SKIN: warm, dry NEUROLOGIC EXAMINATION: Patient is awake, alert and oriented x3. ASSESSMENT Chest pain, atypical, acute coronary syndrome has ruled out History of breast cancer, patient stating she had a prior abnormal CT chest with pulmonary nodules noted and has seen assembly member in the past. Diverticulosis COPD Former smoker History of Hypertension PLAN An acute coronary event has been ruled out with no EKG evidence of ischemia and negative cardiac enzymes. Report from recent echo in the office reviewed Perform Dobutamine stress echo test to assess for stress induced cardiac ischemia. If abnormal will consider coronary angiography. Recommend follow up outpatient with pulmonary From cardiology perspective, if patients stress test is negative no further inpatient workup indicated. Thank you kindly for this consultation. Nurse practitioner note has been reviewed by physician. Signing provider agrees with the documented findings, assessment, and plan of care. Past Medical History Past Medical History: Cancer, COPD, Hypertension, Sleep Apnea/CPAP/BIPAP Additional Past Medical History / Comment(s): O2 3L , 24/HR PER DAY. Swelling areas under davy arms-had recent lymph node bx for, no CPAP, breast cancer dx 1983-Stage 1-no radiation or chemo,generalized cysts,diverticulosis, SOB w/exertion recently, valve problem per pt. History of Any Multi-Drug Resistant Organisms: None Reported Past Surgical History: Appendectomy, Breast Surgery, Section, Cholecystectomy Additional Past Surgical History / Comment(s): davy mastectomies with reconstruction-mult repairs and implant replacements-implants later removed,most ovaries gone, Repair of stomach TEAR. BILATERAL CATARACTS/LENS IMPLANTS Past Anesthesia/Blood Transfusion Reactions: No Reported Reaction Additional Past Anesthesia/Blood Transfusion Reaction / Comment(s): had a hard time waking up with one procedure Past Psychological History: Anxiety Smoking Status: Former smoker Past Alcohol Use History: None Reported Additional Past Alcohol Use History / Comment(s): quit smoking 2007,started smoking at age 14 on and off,1ppd Past Drug Use History: None Reported - Past Family History Mother Family Medical History: COPD Additional Family Medical History / Comment(s): bad heart valves Brother(s) Family Medical History: Diabetes Mellitus Sister(s) Family Medical History: Diabetes Mellitus Medications and Allergies Home Medications Medication Instructions Recorded Confirmed Type Acetaminophen Tab [Tylenol] 1,000 mg PO QID PRN 08/02/18 11/04/21 History Albuterol Sulfate [Proair Hfa] 2 puff INHALATION RT-QID PRN 05/09/21 11/04/21 History Albuterol Nebulized [Ventolin 2.5 mg INHALATION RT-QID PRN 11/04/21 11/04/21 History Nebulized] Ascorbic Acid [Vitamin C] 500 mg PO DAILY 11/04/21 11/04/21 History Cholecalciferol [Vitamin D3 (25 25 mcg PO DAILY 11/04/21 11/04/21 History Mcg = 1000 Iu)] Famotidine [Pepcid] 20 mg PO BID 11/04/21 11/04/21 History Fluticasone Propion/Salmeterol 1 puff INHALATION RT-BID 11/04/21 11/04/21 H istory [Wixela 250-50 Inhub] Multivit-Min/Iron/Folic/Lutein 1 tab PO DAILY 11/04/21 11/04/21 History [Centrum Silver Women Tablet] Mexican Hat-3/Dha/Epa/Fish Oil [Fish Oil 1 cap PO DAILY 11/04/21 11/04/21 History 1,000 mg Softgel] Ubidecarenone [Co Q-10] 300 mg PO DAILY 11/04/21 11/04/21 History Allergies Allergy/AdvReac Type Severity Reaction Status Date / Time codeine Allergy dizziness,h Verified 11/04/21 21:37 irene morphine Allergy Chest Pain Verified 11/04/21 21:37 Physical Exam Vitals: Vital Signs Temp Pulse Pulse Resp BP BP Pulse Ox 11/05/21 07:41 68 11/05/21 07:26 66 11/05/21 07:00 97.5 F L 84 18 147/84 92 L 11/05/21 01:47 97.7 F 79 18 113/66 91 L 11/04/21 22:25 98.1 F 76 17 126/82 95 11/04/21 21:11 84 11/04/21 21:07 80 11/04/21 20:23 97.7 F 82 22 131/79 95 11/04/21 18:21 97.9 F 91 18 135/75 95 Intake and Output 11/04/21 11/05/21 11/05/21 22:59 06:59 14:59 Other: Voiding Method Toilet # Voids 0 3 Weight 128.82 kg Results 11/04/21 18:51 11/04/21 18:51 Cardiac Enzymes 11/04/21 11/04/21 11/04/21 Range/Units 18:51 18:51 21:27 AST 29 (14-36) U/L Troponin I <0.012 <0.012 (0.000-0.034) ng/mL 11/05/21 Range/Units 00:27 AST (14-36) U/L Troponin I <0.012 (0.000-0.034) ng/mL Coagulation 11/04/21 Range/Units 18:51 PT 10.2 (9.0-12.0) sec APTT 23.8 (22.0-30.0) sec CBC 11/04/21 Range/Units 18:51 WBC 6.5 (3.8-10.6) k/uL RBC 4.02 (3.80-5.40) m/uL Hgb 13.7 (11.4-16.0) gm/dL Hct 41.3 (34.0-46.0) % Plt Count 176 (150-450) k/uL Comprehensive Metabolic Panel 11/04/21 Range/Units 18:51 Sodium 139 (137-145) mmol/L Potassium 4.5 (3.5-5.1) mmol/L Chloride 104 (98-107) mmol/L Carbon Dioxide 28 (22-30) mmol/L BUN 20 H (7-17) mg/dL Creatinine 0.92 (0.52-1.04) mg/dL Glucose 105 H (74-99) mg/dL Calcium 9.3 (8.4-10.2) mg/dL AST 29 (14-36) U/L ALT 23 (4-34) U/L Alkaline Phosphatase 97 (38-126) U/L Total Protein 7.6 (6.3-8.2) g/dL Albumin 4.4 (3.5-5.0) g/dL Current Medications Generic Name Dose Route Start Last Admin Trade Name Freq PRN Reason Stop Dose Admin Acetaminophen 650 mg 11/05/21 02:12 11/05/21 02:58 Acetaminophen Tab 325 Mg Tab PO 650 mg Q6HR PRN Administration Fever and/ or Pain Albuterol/Ipratropium 3 ml 11/05/21 08:00 11/05/21 07:26 Ipratropium-Albuterol 3 Ml Neb INHALATION 3 ml RT-QID MELITON Administration Aspirin 325 mg 11/05/21 09:00 Aspirin 325 Mg Tab PO DAILY MELITON Methylprednisolone Sodium Succinate 60 mg 11/05/21 00:00 11/05/21 05:33 Methylprednisolone Sod Succi 125 Mg/2 Ml Vial IV 60 mg Q6HR MELITON Administration Nitroglycerin 0.4 mg 11/04/21 20:39 Nitroglycerin Sl Tabs 0.4 Mg Tab SUBLINGUAL Q5M PRN Chest Pain Nitroglycerin 1 inch 11/05/21 00:00 11/05/21 05:14 Nitroglycerin Oint 1 Inch/Gm Packet TOPICAL Not Given Q6HR MELITON Intake and Output 11/04/21 11/05/21 11/05/21 22:59 06:59 14:59 Other: Voiding Method Toilet # Voids 0 3 Weight 128.82 kg 11/04/21 18:51 11/04/21 18:51
[2021-11-05] MEDS ORDERED: DOBUTamine DRIP for NUC MED 500 MG/250 ML BAG IV ONE (13:00)
--- NOTE | 2021-11-05 13:34 | CA ---
Dobutamine Stress Echocardiogram Report Atiya Watkins Age: 66 Gender: F : 1955 Exam Date: 11/05/2021 12:54 Exam Location: [facility] Ordering Physician: Rosette Mims [facility] Referring Physician: KERI, Benefits Consulting Analyst: Gail Maldonado RDCS Technologist: Ht (in): 60 Wt (lb): 288 Procedure CPT: Indication: Chest Pain ICD-9 Codes: Rhythm: Patient History: Fm hx Cardiac Medications: Medications in past 24 hours: Contrast: Lumason Total Dose (mL): 1 Stress Results Protocol: Peak Dose (???g/kg/min): 20 Duration (min:sec): Atropine:(mg) Target HR: 130 Double Product: [id number] Resting HR: 91 Resting BP: 141 / 83 Peak HR: 145 Peak BP: 162 / 89 Max Predicted HR: 153 95 % Max Predicted HR Stress Summary: BP Response: Reason for Termination: Target HR Cardiac Symptoms: TIGHTNESS ECG Analysis Resting EKG: Normal sinus rhythm, normal EKG Stress EKG: No evidence of electrocardiographic ischemic changes Arrhythmia: Echo Analysis Base Echo Analysis: Normal baseline echocardiogram Low Echo Anaylsis: No echocardiographic evidence of myocardial ischemia. Normal response to Dobutamine. Peak Echo Analysis: Normal response to Dobutamine. Recovery Echo: No segmental wall motion abnormality MEASUREMENTS (Male/Female) Normal Values CONCLUSIONS 1. Normal left electrocardiographic response to dobutamine infusion 2. Normal stress echocardiogram with no evidence of stress induced ischemia. Dr. Neri Tidwell MD (Electronically Signed) Final Date: 05 November 2021 13:33
[2021-11-05 14:52] VITALS: BP 131/76; TEMP 98
[2021-11-05 15:26] VITALS: PULSE 70
[2021-11-05] MEDS ORDERED: methylPREDNISolone SOD SUCCI 40 MG/ML 1 ML VIAL IV SCH (16:00)
--- NOTE | 2021-11-24 09:08 | P.HPIM ---
History of Present Illness H&P Date: 11/05/21 This is a pleasant 66-year-old female past medical history significant for breast cancer, diverticulosis, COPD, former smoker, hypertension in the past not currently on antihypertensives who presented to the ED with chest pain. Patient presents emergency department with complaints of chest tightness. Yesterday morning, patient woke up in the morning and exhibited left-sided chest tightness and some discomfort underneath her left breast. She states the tightness was intermittent all day and continued for over 6 hours. It was non-radiating. Non exertional. She denies any specific aggravating factors. In the ER she received DuoNeb, IV Solu-Medrol with improvement in her chest tightness. She did feel some discomfort in her left arm. She denies any shortness of breath, nausea, diaphoresis, lightheadedness, dizziness, syncope or near syncope. She denies any history of CAD, [place], stroke, diabetes. She denies any current tobacco use. Review of Systems All systems: negative Constitutional: Denies chills, Denies fever Eyes: denies blurred vision, denies pain Ears, nose, mouth and throat: Denies headache, Denies sore throat Cardiovascular: Reports chest pain, Denies shortness of breath Respiratory: Denies cough Gastrointestinal: Denies abdominal pain, Denies diarrhea, Denies nausea, Denies vomiting Genitourinary: Denies dysuria, Denies hematuria Musculoskeletal: Denies myalgias Integumentary: Denies pruritus, Denies rash Neurological: Denies numbness, Denies weakness Psychiatric: Denies anxiety, Denies depression Endocrine: Denies fatigue, Denies weight change Past Medical History Past Medical History: Cancer, COPD, Hypertension, Sleep Apnea/CPAP/BIPAP Additional Past Medical History / Comment(s): O2 3L , 24/HR PER DAY. Swelling areas under davy arms-had recent lymph node bx for, no CPAP, breast cancer dx 1983-Stage 1-no radiation or chemo,generalized cysts,diverticulosis, SOB w/exertion recently, valve problem per pt. History of Any Multi-Drug Resistant Organisms: None Reported Past Surgical History: Appendectomy, Breast Surgery, Section, Cholecystectomy Additional Past Surgical History / Comment(s): davy mastectomies with reconstruction-mult repairs and implant replacements-implants later removed,most ovaries gone, Repair of stomach TEAR. BILATERAL CATARACTS/LENS IMPLANTS Past Anesthesia/Blood Transfusion Reactions: No Reported Reaction Additional Past Anesthesia/Blood Transfusion Reaction / Comment(s): had a hard time waking up with one procedure Past Psychological History: Anxiety Smoking Status: Former smoker Past Alcohol Use History: None Reported Additional Past Alcohol Use History / Comment(s): quit smoking 2007,started smoking at age 14 on and off,1ppd Past Drug Use History: None Reported - Past Family History Mother Family Medical History: COPD Additional Family Medical History / Comment(s): bad heart valves Brother(s) Family Medical History: Diabetes Mellitus Sister(s) Family Medical History: Diabetes Mellitus Medications and Allergies Home Medications Medication Instructions Recorded Confirmed Type Acetaminophen Tab [Tylenol] 1,000 mg PO QID PRN 08/02/18 11/04/21 History Albuterol Sulfate [Proair Hfa] 2 puff INHALATION RT-QID PRN 05/09/21 11/04/21 History Albuterol Nebulized [Ventolin 2.5 mg INHALATION RT-QID PRN 11/04/21 11/04/21 History Nebulized] Ascorbic Acid [Vitamin C] 500 mg PO DAILY 11/04/21 11/04/21 History Cholecalciferol [Vitamin D3 (25 25 mcg PO DAILY 11/04/21 11/04/21 History Mcg = 1000 Iu)] Famotidine [Pepcid] 20 mg PO BID 11/04/21 11/04/21 History Fluticasone Propion/Salmeterol 1 puff INHALATION RT-BID 11/04/21 11/04/21 History [Wixela 250-50 Inhub] Multivit-Min/Iron/Folic/Lutein 1 tab PO DAILY 11/04/21 11/04/21 History [Centrum Silver Women Tablet] [place]-3/Dha/Epa/Fish Oil [Fish Oil 1 cap PO DAILY 11/04/21 11/04/21 History 1,000 mg Softgel] Ubidecarenone [Co Q-10] 300 mg PO DAILY 11/04/21 11/04/21 History Allergies Allergy/AdvReac Type Severity Reaction Status Date / Time codeine Allergy dizziness,h Verified 11/04/21 21:37 irene morphine Allergy Chest Pain Verified 11/04/21 21:37 Physical Exam Gen: well developed, well nourished female in NAD HEENT: NC/AT, mmm Neck: supple, no thyrogmegaly or JVD CV: RRR, no murmur Lungs: Normal effort, clear throughout Abd: soft, nontender, non distended Neuro: alert and oriented x3, no focal deficit Skin: warm and dry Results CBC & Chem 7: 11/04/21 18:51 11/04/21 18:51 Assessment and Plan Plan: 1. Chest pain. ACS ruled out. Cardiology consulted for further evaluation Continue remainder of home medications
--- NOTE | 2021-11-24 09:09 | P.DS ---
Providers Date of admission: 11/04/21 20:39 Expected date of discharge: 11/05/21 Attending physician: Dustin Ceballos MD Consults: 11/04/21 20:39 Consult Physician Urgent Consulting Provider: [facility] Consult Reason/Comments: Chest pain Do you want consulting provider notified?: Yes Primary care physician: [facility] Course: This is a pleasant 66-year-old female past medical history significant for breast cancer, diverticulosis, COPD, former smoker, hypertension in the past not currently on antihypertensives who presented to the ED with chest pain. Patient presents emergency department with complaints of chest tightness. Yesterday morning, patient woke up in the morning and exhibited left-sided chest tightness and some discomfort underneath her left breast. She states the tightness was intermittent all day and continued for over 6 hours. It was non-radiating. Non exertional. She denies any specific aggravating factors. In the ER she rece ived DuoNeb, IV Solu-Medrol with improvement in her chest tightness. She did feel some discomfort in her left arm. She denies any shortness of breath, nausea, diaphoresis, lightheadedness, dizziness, syncope or near syncope. She denies any history of CAD, [place], stroke, diabetes. She denies any current tobacco use. Pt evaluated by Cardiology, underwent stress test which was negative for ischemic changes. She is discharged in stable condition and recommended to follow up with her PCP. Plan - Discharge Summary New Discharge Prescriptions: Continue Acetaminophen Tab [Tylenol] 1,000 mg PO QID PRN PRN Reason: Pain Or Fever > 100.5 Counselor-3/Dha/Epa/Fish Oil [Fish Oil 1,000 mg Softgel] 1 cap PO DAILY Multivit-Min/Iron/Folic/Lutein [Centrum Silver Women Tablet] 1 tab PO DAILY Cholecalciferol [Vitamin D3 (25 Mcg = 1000 Iu)] 25 mcg PO DAILY Fluticasone Propion/Salmeterol [Wixela 250-50 Inhub] 1 puff INHALATION RT-BID Albuterol Sulfate [Proair Hfa] 2 puff INHALATION RT-QID PRN PRN Reason: Shortness Of Breath Or Wheezing Ascorbic Acid [Vitamin C] 500 mg PO DAILY Famotidine [Pepcid] 20 mg PO BID Albuterol Nebulized [Ventolin Nebulized] 2.5 mg INHALATION RT-QID PRN PRN Reason: Shortness Of Breath Ubidecarenone [Co Q-10] 300 mg PO DAILY Discharge Medication List Acetaminophen Tab [Tylenol] 1,000 mg PO QID PRN 08/02/18 [History] Albuterol Sulfate [Proair Hfa] 2 puff INHALATION RT-QID PRN 05/09/21 [History] Albuterol Nebulized [Ventolin Nebulized] 2.5 mg INHALATION RT-QID PRN 11/04/21 [History] Ascorbic Acid [Vitamin C] 500 mg PO DAILY 11/04/21 [History] Cholecalciferol [Vitamin D3 (25 Mcg = 1000 Iu)] 25 mcg PO DAILY 11/04/21 [History] Famotidine [Pepcid] 20 mg PO BID 11/04/21 [History] Fluticasone Propion/Salmeterol [Wixela 250-50 Inhub] 1 puff INHALATION RT-BID 11/04/21 [History] Multivit-Min/Iron/Folic/Lutein [Centrum Silver Women Tablet] 1 tab PO DAILY 11/04/21 [History] Counselor-3/Dha/Epa/Fish Oil [Fish Oil 1,000 mg Softgel] 1 cap PO DAILY 11/04/21 [History] Ubidecarenone [Co Q-10] 300 mg PO DAILY 11/04/21 [History] Follow up Appointment(s)/Referral(s): Skylar Can MD [Primary Care Provider] - 1 Week Patient Instructions/Handouts: Cardiac Stress Test (DC) Activity/Diet/Wound Care/Special Instructions: stress test negative activity as tolerated heart healthy diet Discharge Disposition: HOME SELF-CARE
== END 2021-11-05 17:10 | disposition home or self-care (01) ==
LOC: EC 18:18 → 6NMEDSUR 20:39
PROVIDERS: ADMIT Family Medicine; ATTEND Family Medicine
DX: R07.89 Other chest pain (principal); J44.1 Chronic obstructive pulmonary disease with (acute) exacerbation; I11.9 Hypertensive heart disease without heart failure; R91.8 Other nonspecific abnormal finding of lung field; E66.01 Morbid (severe) obesity due to excess calories; Z68.43 Body mass index [BMI] 50.0-59.9, adult; G47.30 Sleep apnea, unspecified; F41.9 Anxiety disorder, unspecified; K57.90 Diverticulosis of intestine, part unspecified, without perforation or abscess without bleeding; Z79.51 Long term (current) use of inhaled steroids; Z79.899 Other long term (current) drug therapy; Z88.5 Allergy status to narcotic agent; Z85.3 Personal history of malignant neoplasm of breast; Z90.49 Acquired absence of other specified parts of digestive tract; Z98.891 History of uterine scar from previous surgery; Z98.42 Cataract extraction status, left eye; Z98.41 Cataract extraction status, right eye; Z96.1 Presence of intraocular lens; Z90.13 Acquired absence of bilateral breasts and nipples; Z87.891 Personal history of nicotine dependence; Z98.890 Other specified postprocedural states; Z82.49 Family history of ischemic heart disease and other diseases of the circulatory system; Z82.5 Family history of asthma and other chronic lower respiratory diseases; Z83.3 Family history of diabetes mellitus
CPT/HCPCS: 96376; 96374; 99285; 36415; 94640 ×2; 93005; 93351; 80061; 80053; 83735; 84484 ×2; 85025; 85610; 85730; 84145; 71046; G0378 ×2; J1250; J2930 ×2; Q9950

== ENCOUNTER → 2021-12-11 | Outpatient (CLI) | payer MEDICARE, OTHER ==
--- NOTE | 2021-12-11 09:01 | CT ---
EXAMINATION TYPE: CT abdomen wo con DATE OF EXAM: 12/11/2021 COMPARISON: 09/26/2018 HISTORY: 66-year-old female R10.12, left Upper abdominal pain TECHNIQUE: Contiguous axial scanning of the abdomen without IV contrast. Coronal and sagittal reconst ructions performed. CT DLP: 728 mGycm Automated exposure control for dose reduction was used. FINDINGS: Heart borderline in size. Strandy atelectasis lower lungs. Unchanged 4 mm subpleural pulmonary nodule periphery of the right base. No pleural effusion. Tiny hiatal hernia. Liver borderline in size at 17.5 cm. Cholecystectomy clips. There is thickening of the bilateral adrenal glands without discrete nodularity, unchanged from prior . Kidneys show no nephrolithiasis or hydronephrosis. Noncontrast appearance of the spleen and pancreas shows no gross abnormal body. No dilated small bowel, free fluid, or free air. No mesenteric or retroperitoneal lymphadenopathy. Mild overall stool burden. No pericolonic inflammatory change in the visualized upper mid abdomen. The pelvis is not imaged. Bones: Moderate degenerative disc disease thoracic spine. Hypertrophic facet arthropathy lumbar spine . Grade 1 anterolisthesis L4-L5. IMPRESSION: TINY HIATAL HERNIA. BORDERLINE SIZE LIVER AT 17.5 CM. UNCHANGED THICKENING OF THE BILATERAL ADRENAL G LANDS WITHOUT DISCRETE NODULARITY; STABLE BACK TO 2019 SUGGESTING A BENIGN ETIOLOGY. A 4 MM RIGHT BAS ILAR PULMONARY NODULE ALSO STABLE AND BENIGN.
== END | disposition home or self-care (01) ==
LOC: RADCTMAIN 07:33
PROVIDERS: ATTEND Family Medicine
DX: R10.12 Left upper quadrant pain (principal)
CPT/HCPCS: 74150; Q9967

== ENCOUNTER 2022-03-27 07:59 | Inpatient (IN) | payer MEDICARE, OTHER ==
[2022-03-27] MEDS ORDERED: IPRATROPIUM 0.5 MG/2.5 ML NEBU INHALATION STA (08:12)
[2022-03-27] MEDS ORDERED: methylPREDNISolone SOD SUCCI 125 MG/2 ML VIAL IV STA ×2 (08:12→09:54)
[2022-03-27] MEDS ORDERED: ALBUTEROL NEBULIZED 2.5 MG/3 ML INHALATION STA (08:12)
--- NOTE | 2022-03-27 08:16 | ED ---
General Adult HPI - General Chief complaint: Shortness of Breath Stated complaint: SOB Time Seen by Provider: 03/27/22 08:05 Source: patient, RN notes reviewed, old records reviewed Mode of arrival: ambulatory Limitations: no limitations - History of Present Illness Initial comments: This is a 66-year-old female who has a past medical history significant for COPD in the past medical history for smoking. Patient comes in today because she states she's been having hard time breathing with intravenous getting worse. Patient states she's been on 2 rounds steroids and antibiotics and is not helping. Patient states she took 2 breathing treatments today but came to the emergency room because her shortness of breath wasn't improving. Patient denies chest pain or palpitations. Patient denies fever chills per patient states every once while she has a little sputum production. Patient denies headache patient denies lightheadedness or dizziness. Patient denies any abdominal pain patient denies nausea vomiting. Patient denies any increased swelling to the legs or calf tenderness. - Related Data Home Medications Medication Instructions Recorded Confirmed Acetaminophen Tab [Tylenol] 1,000 mg PO QID PRN 08/02/18 11/04/21 Albuterol Sulfate [Proair Hfa] 2 puff INHALATION RT-QID PRN 05/09/21 11/04/21 Albuterol Nebulized [Ventolin 2.5 mg INHALATION RT-QID PRN 11/04/21 11/04/21 Nebulized] Ascorbic Acid [Vitamin C] 500 mg PO DAILY 11/04/21 11/04/21 Cholecalciferol [Vitamin D3 (25 25 mcg PO DAILY 11/04/21 11/04/21 Mcg = 1000 Iu)] Famotidine [Pepcid] 20 mg PO BID 11/04/21 11/04/21 Fluticasone Propion/Salmeterol 1 puff INHALATION RT-BID 11/04/21 11/04/21 [Wixela 250-50 Inhub] Multivit-Min/Iron/Folic/Lutein 1 tab PO DAILY 11/04/21 11/04/21 [Centrum Silver Women Tablet] [place]-3/Dha/Epa/Fish Oil [Fish Oil 1 cap PO DAILY 11/04/21 11/04/21 1,000 mg Softgel] Ubidecarenone [Co Q-10] 300 mg PO DAILY 11/04/21 11/04/21 Allergies Allergy/AdvReac Type Severity Reaction Status Date / Time codeine Allergy dizziness,h Verified 03/27/22 08:04 irene morphine Allergy Chest Pain Verified 03/27/22 08:04 Review of Systems ROS Statement: Those systems with pertinent positive or pertinent negative responses have been documented in the HPI. ROS Other: All systems not noted in ROS Statement are negative. Past Medical History Past Medical History: Cancer, COPD, Hypertension, Sleep Apnea/CPAP/BIPAP Additional Past Medical History / Comment(s): O2 3L , 24/HR PER DAY. Swelling areas under davy arms-had recent lymph node bx for, no CPAP, breast cancer dx 1983-Stage 1-no radiation or chemo,generalized cysts,diverticulosis, SOB w/exertion recently, valve problem per pt. History of Any Multi-Drug Resistant Organisms: None Reported Past Surgical History: Appendectomy, Breast Surgery, Section, Cholecystectomy Additional Past Surgical History / Comment(s): davy mastectomies with reconstruction-mult repairs and implant replacements-implants later removed,most ovaries gone, Repair of stomach TEAR. BILATERAL CATARACTS/LENS IMPLANTS Past Anesthesia/Blood Transfusion Reactions: No Reported Reaction Additional Past Anesthesia/Blood Transfusion Reaction / Comment(s): had a hard time waking up with one procedure Past Psychological History: Anxiety Smoking Status: Former smoker Past Alcohol Use History: None Reported Past Drug Use History: None Reported - Past Family History Mother Family Medical History: COPD Additional Family Medical History / Comment(s): bad heart valves Brother(s) Family Medical History: Diabetes Mellitus Sister(s) Family Medical History: Diabetes Mellitus General Exam - General Exam Comments Initial Comments: GENERAL: Patient is well-developed and well-nourished. Patient is nontoxic and well- hydrated and is in mild distress. ENT: Neck is soft and supple. No significant lymphadenopathy is noted. Oropharynx is clear. Moist mucous membranes. Neck has full range of motion without eliciting any pain. EYES: The sclera were anicteric and conjunctiva were pink and moist. Extraocular movements were intact and pupils were equal round and reactive to light. Eyelids were unremarkable. PULMONARY: Patient has diminished breath sounds bilaterally and some expiratory wheezing. CARDIOVASCULAR: There is a regular rate and rhythm without any murmurs gallops or rubs. ABDOMEN: Soft and nontender with normal bowel sounds. SKIN: Skin is clear with no lesions or rashes and otherwise unremarkable. NEUROLOGIC: Patient is alert and oriented x3. Cranial nerves II through XII are grossly intact. Motor and sensory are also intact. Normal speech, volume and content. Symmetrical smile. MUSCULOSKELETAL: Normal extremities with adequate strength and full range of motion. LYMPHATICS: No significant lymphadenopathy is noted PSYCHIATRIC: Normal psychiatric evaluation. Limitations: no limitations Course Vital Signs 03/27/22 03/27/22 03/27/22 08:01 09:13 09:43 Temperature 98.8 F Pulse Rate 108 H 102 H 108 H Respiratory 26 H Rate Blood Pressure 127/71 O2 Sat by Pulse 96 Oximetry Medical Decision Making - Medical Decision Making EKG is interpreted by me shows a sinus rhythm at 96 bpm VA interval 206 dresses 79 QT interval 331 QTC is 385. Patient's EKG shows no ST segment elevation or depression. I interpreted the chest x-ray. Chest x-ray shows no acute abnormality. - Lab Data Result diagrams: 03/27/22 08:59 03/27/22 08:59 Lab Results 03/27/22 03/27/22 03/27/22 Range/Units 08:59 08:59 08:59 WBC 10.0 (3.8-10.6) k/uL RBC 4.04 (3.80-5.40) m/uL Hgb 13.6 (11.4-16.0) gm/dL Hct 40.2 (34.0-46.0) % MCV 99.5 (80.0-100.0) fL MCH 33.6 (25.0-35.0) pg MCHC 33.8 (31.0-37.0) g/dL RDW 13.1 (11.5-15.5) % Plt Count 145 L (150-450) k/uL MPV 9.8 PT 9.9 (9.0-12.0) sec INR 0.9 (<1.2) APTT 22.1 (22.0-30.0) sec D-Dimer 0.55 (<0.60) mg/L FEU Sodium 140 (137-145) mmol/L Potassium 5.3 H (3.5-5.1) mmol/L Chloride 109 H (98-107) mmol/L Carbon Dioxide 26 (22-30) mmol/L Anion Gap 5 mmol/L BUN 21 H (7-17) mg/dL Creatinine 0.76 (0.52-1.04) mg/dL Est GFR (CKD-EPI)AfAm >90 (>60 ml/min/1.73 sqM) Est GFR (CKD-EPI)NonAf 82 (>60 ml/min/1.73 sqM) Glucose 140 H (74-99) mg/dL Plasma Lactic Acid Michelet (0.7-2.0) mmol/L Calcium 8.8 (8.4-10.2) mg/dL Magnesium 1.9 (1.6-2.3) mg/dL Total Bilirubin 0.8 (0.2-1.3) mg/dL AST 36 (14-36) U/L ALT 29 (4-34) U/L Alkaline Phosphatase 79 (38-126) U/L Total Protein 7.3 (6.3-8.2) g/dL Albumin 4.2 (3.5-5.0) g/dL 03/27/22 Range/Units 08:59 WBC (3.8-10.6) k/uL RBC (3.80-5.40) m/uL Hgb (11.4-16.0) gm/dL Hct (34.0-46.0) % MCV (80.0-100.0) fL MCH (25.0-35.0) pg MCHC (31.0-37.0) g/dL RDW (11.5-15.5) % Plt Count (150-450) k/uL MPV PT (9.0-12.0) sec INR (<1.2) APTT (22.0-30.0) sec D-Dimer (<0.60) mg/L FEU Sodium (137-145) mmol/L Potassium (3.5-5.1) mmol/L Chloride (98-107) mmol/L Carbon Dioxide (22-30) mmol/L Anion Gap mmol/L BUN (7-17) mg/dL Creatinine (0.52-1.04) mg/dL Est GFR (CKD-EPI)AfAm (>60 ml/min/1.73 sqM) Est GFR (CKD-EPI)NonAf (>60 ml/min/1.73 sqM) Glucose (74-99) mg/dL Plasma Lactic Acid Michelet 1.8 (0.7-2.0) mmol/L Calcium (8.4-10.2) mg/dL Magnesium (1.6-2.3) mg/dL Total Bilirubin (0.2-1.3) mg/dL AST (14-36) U/L ALT (4-34) U/L Alkaline Phosphatase (38-126) U/L Total Protein (6.3-8.2) g/dL Albumin (3.5-5.0) g/dL Disposition Clinical Impression: COPD exacerbation Disposition: ADMITTED IP TO THIS HOSP Referrals: Skylar Can MD [Primary Care Provider] - 1-2 days Time of Disposition: 09:54
[2022-03-27] MEDS ORDERED: KETOROLAC 15 MG/ML 1 ML VIAL IM STA (08:17)
--- NOTE | 2022-03-27 09:18 | XR ---
EXAMINATION TYPE: XR chest 2V DATE OF EXAM: 03/27/2022 COMPARISON: Two-view chest performed on November 04, 2021 HISTORY: 66-year-old female with dyspnea. TECHNIQUE: Frontal and lateral views of the chest are obtained. FINDINGS: There is no focal air space opacity, pleural effusion, or pneumothorax seen. Streaky atel ectasis are again seen within the lung bases. The cardiac silhouette size is within normal limits. The osseous structures are intact. IMPRESSION: 1. No acute cardiopulmonary process. 2. No significant interval change since November 04, 2021
[2022-03-27 09:19] LABS: Basophils % (A) 0 %; Eosinophils % (A) 0 %; HCT 40.2 % (34.0-46.0); HGB 13.6 gm/dL (11.4-16.0); Lymphocytes # (A) 0.8 k/uL (1.0-4.8); Lymphocytes % (A) 8 %; MCH 33.6 pg (25.0-35.0); MCHC 33.8 g/dL (31.0-37.0); MCV 99.5 fL (80.0-100.0); Mean Platelet Volume 9.8; Monocytes # (A) 0.5 k/uL (0-1.0); Monocytes % (A) 5 %; Neutrophils # (A) 8.6 k/uL (1.3-7.7); Neutrophils % (A) 86 %; Platelet Count 145 k/uL (150-450); RBC 4.04 m/uL (3.80-5.40); RDW 13.1 % (11.5-15.5)
[2022-03-27 09:32] LABS: INR 0.9 (<1.2); Partial Thromboplastin Time 22.1 sec (22.0-30.0); Prothrombin Time 9.9 sec (9.0-12.0)
[2022-03-27 09:45] LABS: ALT 29 U/L (4-34); African American GFR (CKD) >90 (>60 ml/min/1.73 sqM); Albumin 4.2 g/dL (3.5-5.0); Anion Gap 5 mmol/L; Blood Urea Nitrogen 21 mg/dL (7-17); Calcium 8.8 mg/dL (8.4-10.2); Carbon Dioxide 26 mmol/L (22-30); Chloride 109 mmol/L (98-107); Glucose 140 mg/dL (74-99); Non-African American GFR(CKD) 82 (>60 ml/min/1.73 sqM); Sodium 140 mmol/L (137-145); Total Bilirubin 0.8 mg/dL (0.2-1.3); Total Protein 7.3 g/dL (6.3-8.2)
[2022-03-27 09:47] LABS: AST 36 U/L (14-36); Magnesium 1.9 mg/dL (1.6-2.3); Potassium 5.3 mmol/L (3.5-5.1)
[2022-03-27 09:48] LABS: Alkaline Phosphatase 79 U/L (38-126)
[2022-03-27] MEDS ORDERED: NALOXONE 0.4 MG/ML 1 ML VIAL IVP PRN (09:54)
[2022-03-27] MEDS ORDERED: ACETAMINOPHEN TAB 325 MG TAB PO STA (10:00)
[2022-03-27] MEDS: IPRATROPIUM-ALBUTEROL 3 ML NEB INHALATION SCH ×3 (12:10→20:43)
[2022-03-27] MEDS ORDERED: MAGNESIUM SULFATE-D5W PMX 1 GM in DEXTROSE/WATER 1 100ML.BAG IVPB ONE (14:20)
[2022-03-27] MEDS: methylPREDNISolone SOD SUCCI 125 MG/2 ML VIAL IV SCH ×3 (14:42→23:35)
[2022-03-27] MEDS: ACETAMINOPHEN TAB 325 MG TAB PO PRN (20:58)
[2022-03-27] MEDS ORDERED: AMOXIC-POT CLAV 875-125MG 1 EACH TAB PO SCH (21:00)
[2022-03-28] MEDS: methylPREDNISolone SOD SUCCI 125 MG/2 ML VIAL IV SCH ×3 (06:33→18:04)
[2022-03-28] MEDS: ACETAMINOPHEN TAB 325 MG TAB PO PRN ×2 (06:34→11:28)
[2022-03-28] MEDS: IPRATROPIUM-ALBUTEROL 3 ML NEB INHALATION SCH ×4 (07:29→20:08)
[2022-03-28] MEDS: guaiFENesin-DM 600/30MG 1 EACH TAB.ER.12H PO SCH ×2 (11:03→21:14)
[2022-03-28] MEDS: HEPARIN SODIUM,PORCINE/PF 5,000 UNIT/0.5 ML SYRINGE SQ SCH ×2 (14:20→21:13)
[2022-03-28] MEDS: FORMOTEROL FUMARATE 20 MCG/2 ML NEBU INHALATION SCH (20:08)
[2022-03-28] MEDS: BUDESONIDE 1 MG/2 ML NEBU INHALATION SCH (20:08)
--- NOTE | 2022-03-28 21:04 | HP ---
HISTORY AND PHYSICAL CHIEF COMPLAINT: Shortness of breath. HISTORY OF PRESENT ILLNESS: This is a 66-year-old woman with a past medical history of multiple medical problems, COPD, hypertension, was complaining of shortness of breath for several days. The patient had increased shortness of breath, the patient came to [facility]. Not much sputum is noted. The patient is worried about the heart condition, but chest x-ray showed no evidence of CHF. COVID is negative also. There is no history of any fever, rigors, or chills. PAST MEDICAL HISTORY: Reviewed include COPD, rest of the history is noted and rest of the chart is also noted. HOME MEDICATIONS: Reviewed include albuterol p.r.n. ALLERGIES: Include reviewed, codeine. FAMILY HISTORY: Reviewed, include COPD. SOCIAL HISTORY: Previous history of smoking, no history of alcohol intake. REVIEW OF SYSTEMS: A 14-point review is negative as mentioned. PHYSICAL EXAMINATION: VITAL SIGNS: Pulse 97, blood pressure 136/76, respirations 18, and temperature 97.5. HEENT: Conjunctivae normal. Oral mucosa moist. NECK: No jugular venous distention. No carotid bruit. CARDIOVASCULAR: S1, S2 muffled. RESPIRATIONS: Diminished at the bases, bilateral scattered rhonchi and expiratory wheezing. ABDOMEN: Soft. LEGS: No edema. No swelling. NERVOUS SYSTEM: No focal deficit. LABS: Reviewed. ASSESSMENT: 1. Chronic obstructive pulmonary disease acute exacerbation with acute purulent tracheobronchitis. 2. Hypertension. 3. History of sleep apnea. RECOMMENDATIONS AND DISCUSSION: In this 66-year-old woman who presented with multiple complex medical issues, we will monitor the patient closely, optimize the bronchodilator treatment, pulmonary consultation, otherwise empiric antibiotics, IV steroids. See orders for details. Prognosis guarded. Further recommendations to follow. Recommended close followup with Dr. Can after discharge. MMODL / IJN: [id number] /
[2022-03-28] MEDS: ACETAMINOPHEN TAB 500 MG TAB PO PRN (21:12)
[2022-03-29] MEDS: methylPREDNISolone SOD SUCCI 125 MG/2 ML VIAL IV SCH ×5 (00:23→23:35)
[2022-03-29] MEDS: BUDESONIDE 1 MG/2 ML NEBU INHALATION SCH ×2 (07:29→19:53)
[2022-03-29] MEDS: FORMOTEROL FUMARATE 20 MCG/2 ML NEBU INHALATION SCH ×2 (07:29→19:53)
[2022-03-29] MEDS: IPRATROPIUM-ALBUTEROL 3 ML NEB INHALATION SCH ×4 (07:29→19:53)
[2022-03-29] MEDS: PANTOPRAZOLE 40 MG TABLET PO SCH (08:12)
[2022-03-29] MEDS: CHOLECALCIFEROL 25 MCG (1000 IU) TABLET PO SCH (08:13)
[2022-03-29] MEDS: HEPARIN SODIUM,PORCINE/PF 5,000 UNIT/0.5 ML SYRINGE SQ SCH ×2 (08:14→21:01)
[2022-03-29] MEDS: guaiFENesin-DM 600/30MG 1 EACH TAB.ER.12H PO SCH ×2 (08:14→21:01)
[2022-03-29 08:55] LABS: Basophils # (A) 0.03 X 10*3/uL (0.00-0.10); Basophils % (A) 0.2 %; Eosinophils # (A) 0.04 X 10*3/uL (0.04-0.35); Eosinophils % (A) 0.2 %; HCT 39.7 % (37.2-46.3); HGB 12.8 g/dL (12.0-15.0); Immature Grans, Automated 0.3 %; Lymphocytes # (A) 1.33 X 10*3/uL (0.90-5.00); Lymphocytes % (A) 8.2 %; MCH 32.8 pg (27.0-32.0); MCHC 32.2 g/dL (32.0-37.0); MCV 101.8 fL (80.0-97.0); Mean Platelet Volume 12.6 fL (9.5-12.2); Monocytes # (A) 0.48 X 10*3/uL (0.20-1.00); NRBC Per 100 WBC 0 /100 WBCS (0.0-0.0); Neutrophils # (A) 14.29 X 10*3/uL (1.80-7.70); Neutrophils % (A) 88.1 %; Platelet Count 147 X 10*3/uL (140-440); RDW 14.2 % (11.5-14.5); WBC 16.22 X 10*3/uL (4.50-10.00)
[2022-03-29 09:07] LABS: African American GFR (CKD) 69.4 (60.0-200.0); Anion Gap 9.8 mmol/L (10.00-18.00); BUN/Creat Ratio 28.45 Ratio (12.00-20.00); Blood Urea Nitrogen 27.8 mg/dL (9.0-27.0); Calcium 9.3 mg/dL (8.7-10.3); Carbon Dioxide 26.1 mmol/L (20.0-27.5); Non-African American GFR(CKD) 59.9 (60.0-200.0); Potassium 4.9 mmol/L (3.5-5.5)
[2022-03-29] MEDS: ACETAMINOPHEN TAB 500 MG TAB PO PRN (16:10)
--- NOTE | 2022-03-30 01:08 | PN ---
PROGRESS NOTE DATE OF SERVICE: 03/29/2022 SUBJECTIVE: This 66-year-old woman who was admitted with COPD exacerbation is slightly better today. No chest pain. No palpitations. Patient was started on bronchodilators. PAST MEDICAL HISTORY: Reviewed. PHYSICAL EXAMINATION: VITAL SIGNS: Pulse is 102. Blood pressure 116/70, respirations 17. HEENT: Conjunctivae, nonicteric. CARDIAC: S1, S2. RESPIRATIONS: Bilateral scattered rhonchi. ABDOMEN: Soft. NERVOUS SYSTEM: Nonfocal. LABORATORY DATA: Reviewed and RSV is positive. REVIEW OF SYSTEMS: A 14-point review is negative as mentioned earlier. HOME MEDICATIONS: Reviewed include DuoNeb. Doses and rest of the medication reviewed. ASSESSMENT: 1. Chronic obstructive pulmonary disease, acute exacerbation (acute tracheobronchitis). 2. Acute RSV infection. 3. Hypertension. 4. Sleep apnea. 5. Multiple medical issues recommend. RECOMMENDATIONS: Recommend to continue current medications and symptomatic treatment. Otherwise, I recommend continue with bronchodilators and steroids. Resume the home medications. Empiric antibiotics also been given; otherwise, prognosis is guarded because of multiple complex medical issues and DVT prophylaxis and Dr. Ceballos will follow tomorrow. See orders for details. MMODL / IJN: [id number] /
[2022-03-30] MEDS: methylPREDNISolone SOD SUCCI 125 MG/2 ML VIAL IV SCH ×3 (05:42→17:53)
[2022-03-30] MEDS: IPRATROPIUM-ALBUTEROL 3 ML NEB INHALATION SCH ×4 (07:18→19:57)
[2022-03-30] MEDS: FORMOTEROL FUMARATE 20 MCG/2 ML NEBU INHALATION SCH ×2 (07:19→19:57)
[2022-03-30] MEDS: BUDESONIDE 1 MG/2 ML NEBU INHALATION SCH ×2 (07:19→19:57)
[2022-03-30 08:55] LABS: Basophils # (A) 0.02 X 10*3/uL (0.00-0.10); Basophils % (A) 0.2 %; Eosinophils # (A) 0 X 10*3/uL (0.04-0.35); Eosinophils % (A) 0 %; HCT 41.3 % (37.2-46.3); HGB 13.2 g/dL (12.0-15.0); Immature Grans, Automated 0.6 %; Lymphocytes # (A) 1.56 X 10*3/uL (0.90-5.00); Lymphocytes % (A) 12.4 %; MCH 32.7 pg (27.0-32.0); MCV 102.2 fL (80.0-97.0); Monocytes # (A) 0.51 X 10*3/uL (0.20-1.00); NRBC Per 100 WBC 0 /100 WBCS (0.0-0.0); Neutrophils # (A) 10.45 X 10*3/uL (1.80-7.70); Neutrophils % (A) 82.8 %; Platelet Count 164 X 10*3/uL (140-440); RBC 4.04 X 10*6/uL (4.10-5.20); RDW 13.9 % (11.5-14.5); WBC 12.61 X 10*3/uL (4.50-10.00)
[2022-03-30 09:17] LABS: African American GFR (CKD) 60.2 (60.0-200.0); Anion Gap 14.6 mmol/L (10.00-18.00); BUN/Creat Ratio 24.64 Ratio (12.00-20.00); Blood Urea Nitrogen 27.1 mg/dL (9.0-27.0); Calcium 9.7 mg/dL (8.7-10.3); Carbon Dioxide 25.4 mmol/L (20.0-27.5); Non-African American GFR(CKD) 51.9 (60.0-200.0); Potassium 4.6 mmol/L (3.5-5.5)
[2022-03-30] MEDS: HEPARIN SODIUM,PORCINE/PF 5,000 UNIT/0.5 ML SYRINGE SQ SCH ×2 (09:38→20:18)
[2022-03-30] MEDS: CHOLECALCIFEROL 25 MCG (1000 IU) TABLET PO SCH (09:39)
[2022-03-30] MEDS: guaiFENesin-DM 600/30MG 1 EACH TAB.ER.12H PO SCH ×2 (09:39→20:18)
[2022-03-30] MEDS: PANTOPRAZOLE 40 MG TABLET PO SCH (09:39)
[2022-03-30] MEDS: ACETAMINOPHEN TAB 500 MG TAB PO PRN ×2 (09:39→20:19)
[2022-03-30 11:44] VITALS: RESP 18
[2022-03-30 19:28] VITALS: BP 121/74
[2022-03-31] MEDS: methylPREDNISolone SOD SUCCI 125 MG/2 ML VIAL IV SCH ×2 (00:16→05:52)
[2022-03-31 04:15] VITALS: TEMP 97.5
[2022-03-31] MEDS: FORMOTEROL FUMARATE 20 MCG/2 ML NEBU INHALATION SCH (07:12)
[2022-03-31] MEDS: IPRATROPIUM-ALBUTEROL 3 ML NEB INHALATION SCH (07:12)
[2022-03-31] MEDS: BUDESONIDE 1 MG/2 ML NEBU INHALATION SCH (07:12)
[2022-03-31 07:40] VITALS: PULSE 84
--- NOTE | 2022-03-31 08:28 | P.PN ---
Subjective Progress Note Date: 03/30/22 She is feeling better today, feels the nebulizer treatments are helpful and denies shortness of breath. Continues to complain of cough. No fever, sweats. Objective - Vital Signs Vital signs: Vital Signs Temp 97.5 F L 03/31/22 04:12 Pulse 84 03/31/22 07:39 Resp 18 03/31/22 04:12 BP 121/74 03/31/22 04:12 Pulse Ox 93 L 03/31/22 04:12 FiO2 Intake & Output 03/30/22 03/31/22 03/31/22 18:59 06:59 18:59 Intake Total 50 Balance 50 Intake: Intake, IV Titration 50 Amount cefTRIAXone 1 gm In 50 Sodium Chloride 0.9% 50 ml @ 100 mls/hr IVPB Q24H [facility] Rx#:[id number] Other: Voiding Method Toilet Toilet - Exam Gen: well developed, well nourished NAD CV: RRR, no murmur Lungs: Normal effort, wheezing throughout. No rales - Labs CBC & Chem 7: 03/30/22 05:17 03/30/22 05:17 Labs: Abnormal Lab Results - Last 24 Hours (Table) 03/30/22 03/30/22 Range/Units 05:17 05:17 WBC 12.61 H (4.50-10.00) X 10*3/uL RBC 4.04 L (4.10-5.20) X 10*6/uL MCV 102.2 H (80.0-97.0) fL MCH 32.7 H (27.0-32.0) pg MPV 13.0 H (9.5-12.2) fL Immature Gran # 0.07 H (0.00-0.04) X 10*3/uL Neutrophils # 10.45 H (1.80-7.70) X 10*3/uL Eosinophils # 0 L (0.04-0.35) X 10*3/uL BUN 27.1 H (9.0-27.0) mg/dL Est GFR (CKD-EPI)NonAf 51.9 L (60.0-200.0) BUN/Creatinine Ratio 24.64 H (12.00-20.00) Ratio Glucose 163 H (70-110) mg/dL Microbiology - Last 24 Hours (Table) 03/27/22 08:45 Blood Culture - Preliminary Blood No Growth after 72 hours 03/27/22 08:35 Blood Culture - Preliminary Blood No Growth after 72 hours Assessment and Plan Plan: Continue with IV and inhaled steroids; duonebs. Empiric rocephin. Wean oxygen as tolerated
[2022-03-31] MEDS: HEPARIN SODIUM,PORCINE/PF 5,000 UNIT/0.5 ML SYRINGE SQ SCH (10:16)
[2022-03-31] MEDS: CHOLECALCIFEROL 25 MCG (1000 IU) TABLET PO SCH (10:16)
[2022-03-31] MEDS: PANTOPRAZOLE 40 MG TABLET PO SCH (10:16)
[2022-03-31] MEDS: guaiFENesin-DM 600/30MG 1 EACH TAB.ER.12H PO SCH (10:18)
[2022-03-31] MEDS ORDERED: guaiFENesin SYRUP 100MG/5ML 200 MG/10 ML CUP PO PRN (10:59)
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
== END 2022-03-31 13:10 | disposition home or self-care (01) | DRG 202 ==
LOC: EC 07:59 → 5NMEDONC 09:54
PROVIDERS: ADMIT Family Medicine; ATTEND Family Medicine
DX: J20.5 Acute bronchitis due to respiratory syncytial virus (principal); J44.0 Chronic obstructive pulmonary disease with (acute) lower respiratory infection; J44.1 Chronic obstructive pulmonary disease with (acute) exacerbation; J96.11 Chronic respiratory failure with hypoxia; Z68.39 Body mass index [BMI] 39.0-39.9, adult; E66.9 Obesity, unspecified; I10 Essential (primary) hypertension; Z99.81 Dependence on supplemental oxygen; G47.33 Obstructive sleep apnea (adult) (pediatric); Z20.822 Contact with and (suspected) exposure to COVID-19; Z87.891 Personal history of nicotine dependence; Z79.51 Long term (current) use of inhaled steroids; Z88.5 Allergy status to narcotic agent; Z85.3 Personal history of malignant neoplasm of breast; Z87.19 Personal history of other diseases of the digestive system
CPT/HCPCS: 36415; 71046; 80048; 80053; 83605; 83735; 83880; 84145; 84484; 85025; 85379; 85610; 85730; 87040; 87502; 87634; 87635; 93005; 94640; 94760; 96365; 96367; 96372; 96375; 96376; 99285